=== PATIENT | male | born 1950 | race Caucasian/White ===

== ENCOUNTER 2019-07-16 17:09 | Observation (INO) | payer MEDICARE, SELFPAY ==
[2019-07-16 17:10] VITALS: BP 155/83; PULSE 72; RESP 14; TEMP 36.9; O2SAT 93; BMI 32.0
--- NOTE | 2019-07-16 17:13 | ECG_ITS ---
Measurements Intervals [place] Rate: 70 P: 34 [place]: 176 QRS: 15 QRSD: 115 T: 2 QT: 383 QTc: 415 SINUS RHYTHM INCOMPLETE RIGHT BUNDLE BRANCH BLOCK [90+ ms QRS DURATION, TERMINAL R IN V1/V2, 40+ ms S IN I/aVL/V4/V5/V6] NONSPECIFIC T-WAVE ABNORMALITY INTERPRETATION BASED ON A DEFAULT AGE OF 40 YEARS No previous ECG available for comparison Electronically Signed On 07-17-2019 17:19:47 TREASURY DIRECTOR by Jerson Watters M.D. [id number]
--- NOTE | 2019-07-16 17:14 | ED_ITS ---
Entered by Yohana Zaldivar, acting as scribe for Modesto Sparks DO HPI - Chest Pain General: Chief Complaint: Chest Pain Stated Complaint: CHEST PAIN Time Seen by Provider: 07/16/19 17:10 Source: patient Mode of arrival: EMS Limitations: no limitations History of Present Illness: HPI narrative: 69 yo Male presents to ED with complaint of chest pain. Pt states his pains started around 1500 today. MD complaint: chest pain Timing of current episode: episodic and still present Onset: during exertion Pain location: left chest Pain scale (0-10): 2 Quality: aching and other (pressure) Relieving factors: nitroglycerin Exacerbating factors: nothing Associated symptoms: Reports diaphoresis and dyspnea; Deny abdominal pain, fever(s), nausea, palpitations or vomiting Treatment prior to arrival: aspirin and nitroglycerin Review of Systems General: Reports: 10 or more systems reviewed and unremarkable except in HPI and below Const: Reports: diaphoresis; Denies: fever or chills Eyes: Denies: change in vision, blurry vision or blind spots ENMT: Denies: throat pain, enlarged tonsils, painful swallowing or hoarseness Card: Reports: chest pain; Denies: palpitations, irregular heart rhythm, edema or swelling of feet/ankles Resp: Reports: shortness of breath; Denies: productive cough or non-productive cough GI: Denies: abdominal pain, nausea or vomiting : Denies: flank pain, difficulty urinating, painful urination, urinary frequency or urinary urgency Musc: Denies: neck pain, back pain, extremity pain or extremity swelling Skin/Breast: Denies: rash, itching or redness Neuro: Denies: headache, numbness in extremities or weakness in extremities Endo: Denies: excessive urination, excessive thirst or tired all the time Cornelio/Lymph: Denies: easy bruising or easy bleeding PFSH ED PFSH: Statuses (acute, chronic, etc) shown below reflect problem list status as previously entered and may not be historically accurate Social History (Updated 07/16/19 @ 17:25 by Yohana Zaldivar) Smoking and tobacco status: never smoked Alcohol intake: never Physical Exam Const: COMMON NORMALS: no apparent distress, average body habitus, oriented x3, no limitations, healthy appearing, alert and well nourished HENMT: COMMON NORMALS: normocephalic, head/scalp atraumatic, hearing grossly normal bilaterally, external ears normal, EAC's normal, TM's normal bilaterally, external nose normal, nasal mucous membranes and turbinates normal, moist oral m ucous membranes, oropharynx normal, dentition normal and gingiva normal HEAD & SCALP: normocephalic and atraumatic NOSE: external nose normal and nasal mucous membranes and turbinates normal EXTERNAL EAR: Yes external ears normal EXTERNAL AUDITORY CANAL: EAC's normal TYMPANIC MEMBRANE: TM's normal bilaterally Eye: COMMON NORMALS: PERRL, EOMs intact bilaterally, conjunctivae normal, no scleral icterus, no papilledema, normal visual ruano by confrontation and fundi normal bilaterally CONJUNCTIVA: Yes conjunctivae normal PUPIL: Yes PERRL DIRECT OPHTHALMOSCOPY: Yes no papilledema and Yes fundi normal bilaterally Neck/C-Spine: COMMON NORMALS: full ROM, no lymphadenopathy, supple, no meningeal signs, no JVD, thyroid normal and no carotid bruits THYROID: thyroid normal Chest: COMMONS NORMALS: inspection of chest normal and palpation of chest normal Resp: COMMON NORMALS: normal respiratory effort, no retractions, no use of accessory muscles, clear to auscultation bilaterally and percussion normal A USCULTATION: clear to auscultation bilaterally PERCUSSION: percussion normal Cardio: COMMON NORMALS: no JVD, regular rate, regular rhythm, S1 normal heart sound, S2 normal heart sound, no gallops, no clicks, no murmurs, no rub and peripheral pulses 2+ throughout RATE: regular rate RHYTHM: regular rhythm HEART SOUNDS: S1 normal and S2 normal PERIPHERAL PULSES: pulses 2+ throughout GI: COMMON NORMALS: normal to inspection, nondistended, normoactive bowel sounds, soft to palpation, non-tender, no hepatosplenomegaly, no masses and no bruits PALPATION: Yes soft and Yes no hepatosplenomegaly : COMMON NORMALS: Yes no CVA tenderness BLADDER/KIDNEY EXAM: Yes no CVA tenderness Back/Pelvis: COMMON NORMALS: no CVA tenderness, thoracic and lumbar spine normal to inspection, no thoracic nor lumbar tenderness, thoraco-lumbar ROM normal and straight leg raise negative bilaterally Extremity: COMMON NORMALS: normal to inspection, full ROM, normal capillary refill, no joint enlargement, no clubbing, cyanosis or edema, no calf tenderness and no pedal edema Neuro: COMMON NORMALS: oriented x3 SENSORIUM/ORIENTATION: Yes alert MENINGEAL SIGNS: Yes no meningeal signs Skin: COMMON NORMALS: no rashes or lesions noted, no wounds, skin turgor normal, no jaundice, no petechiae and no mottling GENERAL SKIN EXAM: no rashes or lesions noted and turgor normal Course Vital Signs: Vital signs: Vital Signs Temperature 98.5 F 07/16/19 17:10 Pulse Rate 68 07/16/19 19:15 Respiratory Rate 16 07/16/19 19:15 Blood Pressure 123/86 07/16/19 19:15 Pulse Oximetry 96 07/16/19 19:15 MDM - Chest Pain Lab Data: Labs: Lab Results 07/16/19 07/16/19 07/16/19 Range/Units 17:18 17:18 17:18 WBC 9.6 (4.0-10.0) 10^3/ uL RBC 5.22 (4.1-5.3) 10^6/u L Hgb 15.1 (11.7-16.6) g/dL Hct 43.7 (42.0-52.0) % MCV 83.7 (80-94) fL MCH 28.9 (28.0-34.0) pg MCHC 34.6 (30.0-36.0) g/dL RDW 13.5 (12.1-15.1) % Plt Count 238 (130-400) 10^3/c mm MPV 12.0 H (7.4-10.4) fL Neut % (Auto) 71.3 % Lymph % (Auto) 19.2 % [place] % (Auto) 6.3 % Eos % (Auto) 2.3 % Baso % (Auto) 0.6 % Neut # (Auto) 6.8 (1.8-7.7) 10^3/u L Lymph # (Auto) 1.8 (0.8-4.8) 10^3/u L [place] # (Auto) 0.6 (0.2-0.9) 10^3/u L Eos # (Auto) 0.2 (0.0-0.8) 10^3/u L Baso # (Auto) 0.1 (0.0-0.1) 10^3/u L Nucleated RBC % (a uto) 0 % Nucleated RBCs # 0.0 /100WBC Sodium 138 (136-145) mmol/L Potassium 3.3 L (3.5-5.1) mmol/L Chloride 97 L (98-107) mmol/L Carbon Dioxide 26 (22-29) mmol/L Anion Gap 18.3 (5-19) BUN 19 (8-23) mg/dL Creatinine 1.1 (0.7-1.2) mg/dL GFR Calculation 66.6 L (90-130) mL/min Glucose 103 (74-106) mg/dL Calcium 10.9 H (8.8-10.2) mg/Dl Total Bilirubin 0.8 (0.15-1.2) mg/dL AST 26 (0-40) U/L ALT 31 (0-41) U/L Alkaline Phosphata se 47 (40-130) IU/L Troponin T Baselin e 17 H (0-15) ng/mL Troponin T 120 Min tr (0-15) ng/mL Delta Troponin T (0-10) ABS# NT-Pro-B Natriuret Pep 15 (0-125) pg/mL Total Protein 7.4 (6.6-8.7) g/dL Albumin 5.0 (3.5-5.2) g/dL Globulin 2.4 (1.3-4.6) g/dL 07/16/19 Range/Units 19:27 WBC (4.0-10.0) 10^3/ uL RBC (4.1-5.3) 10^6/u L Hgb (11.7-16.6) g/dL Hct (42.0-52.0) % MCV (80-94) fL MCH (28.0-34.0) pg MCHC (30.0-36.0) g/dL RDW (12.1-15.1) % Plt Count (130-400) 10^3/c mm MPV (7.4-10.4) fL Neut % (Auto) % Lymph % (Auto) % [place] % (Auto) % Eos % (Auto) % Baso % (Auto) % Neut # (Auto) (1.8-7.7) 10^3/u L Lymph # (Auto) (0.8-4.8) 10^3/u L [place] # (Auto) (0.2-0.9) 10^3/u L Eos # (Auto) (0.0-0.8) 10^3/u L Baso # (Auto) (0.0-0.1) 10^3/u L Nucleated RBC % (a uto) % Nucleated RBCs # /100WBC Sodium (136-145) mmol/L Potassium (3.5-5.1) mmol/L Chloride (98-107) mmol/L Carbon Dioxide (22-29) mmol/L Anion Gap (5-19) BUN (8-23) mg/dL Creatinine (0.7-1.2) mg/dL GFR Calculation (90-130) mL/min Glucose (74-106) mg/dL Calcium (8.8-10.2) mg/Dl Total Bilirubin (0.15-1.2) mg/dL AST (0-40) U/L ALT (0-41) U/L Alkaline Phosphata se (40-130) IU/L Troponin T Baselin e (0-15) ng/mL Troponin T 120 Min tr 13.88 (0-15) ng/mL Delta Troponin T -3.12 L (0-10) ABS# NT-Pro-B Natriuret Pep (0-125) pg/mL Total Protein (6.6-8.7) g/dL Albumin (3.5-5.2) g/dL Globulin (1.3-4.6) g/dL Imaging Data^: CXR: Radiologist's impression: [place] [address] XRay Report Signed Patient: Toan Bejarano #: [id number] : 1950cct#:[id number] Age/Sex: 69 / MADM Date: 07/16/19 Loc: ERRoom/Bed: Attending Dr: Ordering Provider/Ordering MD: Modesto Sparks DO Date of Service: 07/16/19 Procedure(s): XR chest 1V portable [id number] Accession Number(s): [id number] Report Number: [id number] PROCEDURE INFORMATION: Exam: XR Chest, 1 View Exam date and time: 07/16/2019 5:14 PM Age: 69 years old Clinical indication: Chest pain TECHNIQUE: Imaging protocol: XR of the chest Views: 1 view. COMPARISON: No relevant prior studies available. FINDINGS: Lungs: Unremarkable. No consolidation. Pleural space: Unremarkable. No pleural effusion. No pneumothorax. Heart/Mediastinum: Unremarkable. No cardiomegaly. Bones/joints: Unremarkable. XR/XR chest 1V portable [id number] IMPRESSION: No acute findings. Dictated By:Landon Pierson Signed By:Fanny Pierson Date/Time:07/16/191741 DD/ 40 Discharge Plan Discharge Patient Disposition: Admitted As Inpatient Clinical Impression: Chest pain Qualifiers: Chest pain type: chest pain due to myocardial ischemia Ischemic chest pain t ype: unstable angina pectoris Qualified Code(s): I20.0 - Unstable angina Condition: Fair Referrals: Soraya Calhoun DPM [Primary Care Provider] - Coding Level of Care Code ED Computer Help Desk Specialist for Chg Fwd Exam Problem Focused The documentation recorded by the Zen isaacs Carmen, accurately reflects the service I personally performed and the decisions made by Clare russell Donald P, Jul 16, 2019 17:09
[2019-07-16 17:31] LABS: Basophils # 0.1 10^3/uL (0.0-0.1); Basophils % 0.6 %; Eosinophils # 0.2 10^3/uL (0.0-0.8); Eosinophils % 2.3 %; Hematocrit 43.7 % (42.0-52.0); Hemoglobin 15.1 g/dL (11.7-16.6); Lymphocytes # 1.8 10^3/uL (0.8-4.8); Lymphocytes % 19.2 %; Mean Corpuscular HGB Conc 34.6 g/dL (30.0-36.0); Mean Corpuscular Hemoglobin 28.9 pg (28.0-34.0); Mean Corpuscular Volume 83.7 fL (80-94); Monocytes # 0.6 10^3/uL (0.2-0.9); Monocytes % 6.3 %; Neutrophils # 6.8 10^3/uL (1.8-7.7); Neutrophils % 71.3 %; Nucleated Red Blood Cells % 0 %; Platelet Count 238 10^3/cmm (130-400); Red Blood Count 5.22 10^6/uL (4.1-5.3); Red Cell Distribution Width 13.5 % (12.1-15.1); White Blood Count 9.6 10^3/uL (4.0-10.0)
[2019-07-16 18:06] LABS: Troponin(5th) Baseline 17 ng/mL (0-15)
[2019-07-16 18:14] LABS: Alanine Aminotransferase 31 U/L (0-41); Alkaline Phosphatase 47 IU/L (40-130); Anion Gap 18.3 (5-19); Aspartate Amino Transferase 26 U/L (0-40); Blood Urea Nitrogen 19 mg/dL (8-23); Calcium 10.9 mg/Dl (8.8-10.2); Carbon Dioxide 26 mmol/L (22-29); Chloride 97 mmol/L (98-107); Globulin 2.4 g/dL (1.3-4.6); Glomerular Filtration Rate 66.6 mL/min (90-130); Glucose 103 mg/dL (74-106); NT Pro B Type Natriuretic Pept 15 pg/mL (0-125); Potassium 3.3 mmol/L (3.5-5.1); Sodium 138 mmol/L (136-145); Total Bilirubin 0.8 mg/dL (0.15-1.2); Total Protein 7.4 g/dL (6.6-8.7)
--- NOTE | 2019-07-16 19:04 | PC.NURSE ---
REPORT RECEIVED FROM ANNE GUADALUPE AND CARE TRANSFERRED TO ANNE MONSON
--- NOTE | 2019-07-16 19:13 | ECG_ITS ---
Measurements Intervals [place] Rate: 65 P: 19 [place]: 176 QRS: 7 QRSD: 114 T: -5 QT: 389 QTc: 406 SINUS RHYTHM POSSIBLE RIGHT VENTRICULAR CONDUCTION DELAY [RSR (QR) IN V1/V2] POSSIBLE LEFT VENTRICULAR HYPERTROPHY [VOLTAGE CRITERIA PLUS LAE OR QRS WIDENING] NONSPECIFIC T-WAVE ABNORMALITY No previous ECG available for comparison Electronically Signed On 07-17-2019 17:26:47 FITNESS COACH by Jerson Watters M.D. [id number]
[2019-07-16 19:15] VITALS: BP 123/86; PULSE 68; RESP 16; O2SAT 96
[2019-07-16 19:48] LABS: Troponin 5 2HR 13.88 ng/mL (0-15)
[2019-07-16 19:49] LABS: Troponin 5 2HR Delta -3.12 ABS# (0-10)
[2019-07-16 20:43] VITALS: BP 150/79; PULSE 62; RESP 14; O2SAT 95
[2019-07-16 20:56] VITALS: BP 150/79; PULSE 59; RESP 16; O2SAT 98
[2019-07-16 21:17] VITALS: BP 151/78; PULSE 59; RESP 18; TEMP 36.5; O2SAT 96
--- NOTE | 2019-07-16 22:50 | P.HP_ITS ---
Providers/Chief Complaint Admitting Physician: Jackie Haynes MD Primary Care Provider: DAMIAN Lozano Chief Complaint: CHEST PAIN History of Present Illness Toan Bejarano is a 69 year old male with PMHx of HTN, Hyperlipidemia, NIDDM type II, Obesity; presents from home via EMS for evaluation of chest pain that started earlier this evening while he was outside moving some 2 x 4 planks. He describes it as a left-sided, pressure-like, non-radiating seem to last for several minutes at a time. He took 2 baby aspirins and immediately called EMS. On their arrival they gave him an additional 3 aspirins and 1 nitroglycerin which resolved his pain completely. He is currently chest pain-free during my evaluation on the floor. He has had chest pain like this in the past approximately 6 years ago following which he had a treadmill stress test that was negative. He has not had any chest pain since. He denies having had any shortness of breath, palpitations, lightheadedness but does remember being mildly diaphoretic. Prior to the onset of his pain he was seen his usual state of health. He does not think that he overexerted earlier in the day. Work-up in the ER indicates a normal CBC, mild hypokalemia with a potassium of 3.3 which I will replace orally, normal renal function. BNP is normal and 2-hour generation 5 troponins shows a slight drop of 2.44. Vital signs are stable. I discussed stress testing given the onset of his symptoms with exertion which patient is agreeable to and will be scheduled for the a.m. Review of Systems Const: Reports: diaphoresis (Mild); Denies: fever, chills, change in appetite, fatigue or malaise Eyes: Denies: change in vision ENMT: Denies: painful swallowing or dry mouth Card: Reports: chest pain; Denies: palpitations, edema, swelling of feet/ankles, lightheadedness, syncope or pre-syncope Resp: Denies: shortness of breath or productive cough GI: Denies: abdominal pain, nausea, vomiting, vomiting blood or blood in stool : Denies: painful urination or urinary frequency Musc: Denies: back pain Skin/Breast: Denies: rash Neuro: Reports: weakness in extremities; Denies: numbness in extremities Psych: Denies: anxiety Medications/Allergies Home Medications Medication Instructions Recorded Confirmed Last Taken Type allopurinol 300 mg PO DAILY 07/16/19 07/16/19 07/16/19 History aspirin [Aspir-81] 162 mg PO DAILY 07/16/19 07/16/19 07/16/19 History atorvastatin 40 mg PO DAILY 07/16/19 07/16/19 07/15/19 History benazepril 40 mg PO DAILY 07/16/19 07/16/19 07/16/19 History bimatoprost [Lumigan] 1 drp OPHTHALMIC (EYE) QPM 07/16/19 07/16/19 07/15/19 History fenofibrate 160 mg PO DAILY 07/16/19 07/16/19 07/16/19 History hydrochlorothiazide 25 mg PO DAILY 07/16/19 07/16/19 07/16/19 History metformin 1,000 mg PO BID 07/16/19 07/16/19 07/16/19 History Allergies Allergy/AdvReac Type Severity Reaction Status Date / Time amoxicillin Allergy Unknown Unknown Verified 07/16/19 20:42 PFSH Acute PFSH: Statuses (acute, chronic, etc) shown below reflect problem list status as previously entered and may not be historically accurate Medical History (Updated 07/17/19 @ 02:04 by Jackie Haynes MD) Hyperlipidemia (Acute) Hypertension (Acute) Non-insulin dependent type 2 diabetes mellitus (Acute) Surgical History (Updated 07/17/19 @ 01:59 by Jackie Haynes MD) History of appendectomy (Acute) Family History (Updated 07/17/19 @ 02:00 by Jackie Haynes MD) Grandmother Hypertension Diabetes Denies family history of CAD (coronary artery disease) Social History (Updated 07/17/19 @ 02:00 by Jackie Haynes MD) Smoking and tobacco status: never smoked Alcohol intake: never Substance/Drug Use: never Vitals/I&O/Wt Last Vital Signs Temp 97.7 F 07/16/19 21:17 Pulse 59 L 07/16/19 21:17 Resp 18 07/16/19 21:17 BP 151/78 07/16/19 21:17 Pulse Ox 96 07/16/19 21:17 Weight last 48 hrs Weight 98.43 kg Physical Exam Const: COMMON NORMALS: no apparent distress and oriented x3 GENERAL APPEARANCE: cooperative and comfortable ORIENTATION/CONSCIOUSNESS: Yes awake HENMT: COMMON NORMALS: normocephalic, head/scalp atraumatic, hearing grossly normal bilaterally and moist oral mucous membranes HEAD & SCALP: normocephalic and atraumatic Eye: COMMON NORMALS: PERRL, EOMs intact bilaterally and conjunctivae normal CONJUNCTIVA: Yes conjunctivae normal PUPIL: Yes PERRL Neck/C-Spine: COMMON NORMALS: full ROM GENERAL: Yes normal visual inspection and Yes trachea midline Resp: COMMON NORMALS: normal respiratory effort, no retractions, no use of accessory muscles and clear to auscultation bilaterally EFFORT & INSPECTION: Yes able to speak in complete sentences, Yes symmetric chest movement and No tachypneic AUSCULTATION: clear to auscultation bilaterally Cardio: COMMON NORMALS: regular rate, regular rhythm, S1 normal heart sound, S2 normal heart sound and no murmurs RATE: regular rate RHYTHM: regular rhythm HEART SOUNDS: S1 normal and S2 normal GI: COMMON NORMALS: normal to inspection, nondistended, normoactive bowel sounds, soft to palpation and non-tender PALPATION: Yes soft Extremity: COMMON NORMALS: normal to inspection, full ROM and no clubbing, cyanosis or edema; negative for no pedal edema Neuro: COMMON NORMALS: oriented x3, moves all extremities, no focal motor deficits, no sensory deficits noted and gait normal Psych: COMMON NORMALS: mental status grossly normal, thought process normal, cooperative, affect normal and speech normal SPEECH: Yes normal speech THOUGHT PROCESS: normal thought process Skin: COMMON NORMALS: no rashes or lesions noted, no jaundice, no petechiae and no mottling GENERAL SKIN EXAM: no rashes or lesions noted Data : 07/16/19 17:18 07/16/19 17:18 A&P Assessment and plan (1) Chest pain: -chest pain that was brought on by exertion, need to rule out ACS given underlying risk factors including [id number] type 2 diabetes, hypertension and hyperlipidemia -Telemetry monitoring -Serial troponins, EKGs -Stress testing in a.m. -Check A1c, TSH, lipid panel in a.m. -JESSY -NPO after midnight Status: Acute Qualifiers: Chest pain type: chest pain due to myocardial ischemia Ischemic chest pain type: unstable angina pectoris Qualified Code(s): I20.0 - Unstable angina Code(s): R07.9 - Chest pain, unspecified (2) Non-insulin dependent type 2 diabetes mellitus: -check A1c in AM Status: Acute Code(s): E11.9 - Type 2 diabetes mellitus without complications (3) Hypertension: -resume oral antihypertensives as appropriate Status: Acute Qualifiers: Hypertension type: essential hypertension Qualified Code(s): I10 - Essential (primary) hypertension Code(s): I10 - Essential (primary) hypertension (4) Hyperlipidemia: -resume statin -lipid panel in AM Status: Acute Qualifiers: Hyperlipidemia type: unspecified Qualified Code(s): E78.5 - Hyperlipidemia, unspecified Code(s): E78.5 - Hyperlipidemia, unspecified Additional A&P Information -Obesity: BMI-32 kg/m2 -Gout -resume home meds as appropriate -hold metformin -low risk for DVT so no ppx needed -Dispo: home -Code status: FULL code Attestations Medical Necessity Statement*: Toan Bejarano's hospital stay will be less than 2 midnights for workup of chest pain r/o ACS including stress testing in AM. Time Spent in Patient Care: Greater than 35 minutes (>than 50% of time spent in counselling and/or direct pt care on unit) . Coding Level of Care Code Acute Safety Instruction Police Officer for Antonio Dickinson Diagnoses Chest pain I20.0 Chest pain type: chest pain due to myocardial ischemia Ischemic chest pain type: unstable angina pectoris Non-insulin dependent type 2 diabetes mellitus E11.9 Hypertension I10 Hypertension type: essential hypertension Hyperlipidemia E78.5 Hyperlipidemia type: unspecified
--- NOTE | 2019-07-16 23:13 | ECG_ITS ---
Measurements Intervals [place] Rate: 59 P: 49 [place]: 182 QRS: 30 QRSD: 117 T: 5 QT: 417 QTc: 414 SINUS BRADYCARDIA MODERATE INTRAVENTRICULAR CONDUCTION DELAY [110+ ms QRS DURATION] NONSPECIFIC T-WAVE ABNORMALITY No previous ECG available for comparison Electronically Signed On 07-17-2019 17:27:25 MICROFILM CLERK by Jerson Watters M.D. [email or web address]
[2019-07-16 23:44] VITALS: BP 124/73; PULSE 57; RESP 18; TEMP 37; O2SAT 95
[2019-07-16 23:49] LABS: Troponin 5 6HR 14.56 ng/L (0-15)
[2019-07-16 23:50] LABS: Troponin 5 6HR Delta -2.44 ng/L (0-12)
[2019-07-17] VITALS (7 sets, daily range): BP systolic 151–185; BP diastolic 77–89; PULSE 56–87; RESP 15–18; TEMP 36.6–37; O2SAT 96
--- NOTE | 2019-07-17 06:00 | ECG_ITS ---
NAME OF STUDY: LEXISCAN SESTAMIBI STRESS TEST INDICATION: Typical Chest Pain r/o ACS PROCEDURE: At the baseline, the EKG revealed normal sinus rhythm with normal ST-T's. The baseline blood pressure was 161/80 mm Hg with a heart rate of 66 beats/min. Lexiscan was infused over a period of 20 seconds. A total of 0.4 milligrams of Lexiscan was infused. The stress phase was continued for a total of 5 minutes. Heart rate at the end of the stress phase was 88 with a blood pressure 179/88. The EKG at the peak infusion revealed some nonspecific ST-T changes. Sestamibi was injected 20 seconds after the Lexiscan infusion. Blood pressure at the end of the recovery phase was 177/70 with a heart rate of 82 per minute. CONCLUSION: 1. Nonspecific EKG changes with LexiScan infusion 2. No LexiScan induced chest pain or cardiac arrhythmia 3. Normal blood pressure and heart rate response 4. Sestamibi/sestamibi perfusion scan pending; see separate report. Electronically Signed On 07-18-2019 22:13:44 WANT AD SUPERVISOR by Maria Elena Hernandez M.D. [id number]
[2019-07-17 06:36] LABS: Estmated Average Glucose 134; Hemoglobin A1C 6.3 % (4.0-6.0)
[2019-07-17 06:39] LABS: Chol HDL Ratio 4.86 mg/dL (1.0-5.00); Cholesterol 136 mg/dL (0-200); HDL Cholesterol 28 mg/dL (60-100); LDL Cholesterol Calculated 61 mg/dL (50-129); LDL HDL Ratio 2.18 RATIO (0.00-3.22); Thyroid Stimulating Hormone 2.54 uIU/mL (0.27-4.20); Triglycerides 237 mg/dL (0-150)
--- NOTE | 2019-07-17 06:50 | SUR.PREOP ---
PRE PROCEDURE NO PAIN REPORTED DURING INTAKE ASSESSMENT.
--- NOTE | 2019-07-17 08:52 | SUR.PREOP ---
Patient reports no pain or discomfort prior to the start of the procedure.
[2019-07-17] MEDS: regadenoson 0.4 Mg/5 ml Syringe IVP (09:01)
[2019-07-17] MEDS: hydroCHLOROthiazide 25 mg Tablet PO (10:44)
[2019-07-17] MEDS: aspirin 81 mg Chew Tablet 162 MG PO (10:44)
[2019-07-17] MEDS: allopurinol 300 mg Tablet PO (10:45)
--- NOTE | 2019-07-17 15:08 | PC.NURSE ---
Talking with roommate
--- NOTE | 2019-07-17 18:34 | P.DS_ITS ---
Discharge Providers Date of Admission: 07/16/19 20:20 Date of Discharge: 07/17/19 Attending Provider at Admission: Jackie Haynes MD Attending Provider at Discharge: Zachery Belcher Primary Care Provider: DAMIAN Lozano Diagnoses at Discharge Discharge Diagnosis (1) Chest pain: Status: Acute Qualifiers: Chest pain type: chest pain due to myocardial ischemia Ischemic chest pain type: unstable angina pectoris Qualified Code(s): I20.0 - Unstable angina (2) Non-insulin dependent type 2 diabetes mellitus: Status: Acute (3) Hypertension: Status: Acute Qualifiers: Hypertension type: essential hypertension Qualified Code(s): I10 - Essential (primary) hypertension (4) Hyperlipidemia: Status: Acute Qualifiers: Hyperlipidemia type: unspecified Qualified Code(s): E78.5 - Hyperlipidemia, unspecified Reason for Visit Reason for Visit: Reason For Visit: CHEST PAIN Hospital Course Hospital Course: .Pleasant 69-year-old gentleman with history of HTN, HLD, DM 2 was placed in observation after an episode of chest pain after moving some 2 by fours, which resolved after aspirin and nitroglycerin treatment given to him by paramedics, without any recurrence. He was continued on aspirin, statin, HCTZ for blood pressure. He underwent assessment by nuclear Lexiscan stress test, results of which were discussed with him and his family. Small area of inconsistently reversible defect in the mid inferior wall region could suggest ischemia in distribution of RCA, however, with limited positive predictive value, with normal ejection fraction, no gross wall motion abnormalities. With only very mildly elevated baseline troponin, without rise or significant delta, with nonspecific EKG changes, unremarkable chest x-ray, and without any recurrence of symptoms he wanted to go home. Plan for medical therapy was discussed with him and his . He is started on minimal dose, 12.5 mg of metoprolol for suspected coronary artery disease due to borderline heart rate, continued on aspirin, statin. Please follow-up in office regarding coronary disease risk factors. Follow heart rates and adjust therapy as appropriate. Physical Exam Const: COMMON NORMALS: no apparent distress and oriented x3 OTHER: is at bedside. He is impatient to leave, ready to leave AGAINST MEDICAL ADVICE if needed in case stress test result takes longer. HENMT: COMMON NORMALS: oropharynx normal Neck/C-Spine: COMMON NORMALS: no JVD Resp: COMMON NORMALS: normal respiratory effort and clear to auscultation bilaterally AUSCULTATION: clear to auscultation bilaterally Cardio: COMMON NORMALS: no JVD, regular rhythm, S1 normal heart sound, S2 normal heart sound and no murmurs RHYTHM: regular rhythm HEART SOUNDS: S1 normal and S2 normal GI: COMMON NORMALS: normal to inspection, nondistended, normoactive bowel sounds, soft to palpation and non-tender PALPATION: Yes soft Extremity: COMMON NORMALS: no joint enlargement and no pedal edema Neuro: COMMON NORMALS: oriented x3 and moves all extremities Skin: COMMON NORMALS: no rashes or lesions noted GENERAL SKIN EXAM: no rashes or lesions noted Discharge Data Data Completed and Pending: Completed Studies During Hospitalization Category Date Time Status XR chest 1V carlos ble [id number] Stat Exams 07/16/19 17:12 Completed NM ivette perf SPECT r/s* [id number] Routin e Nuc Med 07/17/19 22:47 Completed Pending at discharge Category Date Time Status Sestamibi Stress Test Request Routi ne Exams 07/17/19 06:00 Ordered Labs from last 24 hours 07/17/19 07/17/19 07/16/19 05:15 05:15 23:20 Estimat Average Gl ucose 134 Hemoglobin A1c 6.3 H Troponin I 6 Hour 14.56 Troponin I Hi Sens Del -2.44 L Troponin T 120 Min [facility] [place] Delta Troponin T Triglycerides 237 H Cholesterol 136 LDL Cholesterol, C alc 61 HDL Cholesterol 28 L LDL/HDL Ratio 2.18 Cholesterol/HDL Ra carlos 4.86 TSH 2.54 07/16/19 19:27 Estimat Average Gl ucose Hemoglobin A1c Troponin I 6 Hour Troponin I Hi Sens Del Troponin T 120 Min [facility] [place] 13.88 Delta Troponin T -3.12 L Triglycerides Cholesterol LDL Cholesterol, C alc HDL Cholesterol LDL/HDL Ratio Cholesterol/HDL Ra carlos TSH Vitals: Last Vital Signs Temp 98.6 F 07/17/19 18:09 Pulse 63 07/17/19 18:09 Resp 16 07/17/19 18:09 BP 155/81 07/17/19 18:09 Pulse Ox 96 07/17/19 18:09 Discharge Plan Discharge Patient Disposition: Home, Self-Care Condition: Fair Prescriptions: New metoprolol tartrate 25 mg tablet 12.5 mg PO BID Qty: 30 RF: 0 nitroglycerin 400 mcg powder in packet 0.4 mg SUBLINGUAL Q5M PRN (Reason: chest pain) Qty: 36 RF: 0 Continued atorvastatin 20 mg tablet 40 mg PO DAILY RF: 0 metformin 1,000 mg tablet 1,000 mg PO BID RF: 0 allopurinol 300 mg tablet 300 mg PO DAILY RF: 0 hydrochlorothiazide 25 mg tablet 25 mg PO DAILY RF: 0 benazepril 40 mg tablet 40 mg PO DAILY RF: 0 fenofibrate 160 mg tablet 160 mg PO DAILY RF: 0 Aspir-81 81 mg Tablet,Delayed Release (Dr/Ec) 162 mg PO DAILY RF: 0 Lumigan 0.01 % Drops 1 drp OPHTHALMIC (EYE) QPM RF: 0 Discharge Orders: Discharge Order (Routine); Ordered 07/17/19 Ordered By: Zachery Belcher Referrals: Soraya Calhoun DPM [Primary Care Provider] - 4-7 days (PLEASE CALL TOMORROW MORNING TO SET UP A FOLLOW UP APPOINTMENT.) Discharge Diet: Cardiac and Diabetic Patient Instructions: Metoprolol (By mouth), Nitroglycerin (By mouth), Chest Pain (DC) Activity Restrictions/Additional Instructions: If you experience severe non-resolving chest pain, not responsive to nitroglycerin, seek medical attention delay. Continue to monitor your blood pressure and blood glucose 3 times daily, record values to bring to your appointment. Discharge Date/Time: 07/17/19 18:21 Discharge Attestations Time Spent in Discharge Care*: greater than 30 min Quality Metrics Clinical Quality Measures During this hospital stay, did patient experience: None Coding Level of Care Code Acute Soda Column Operator for Antonio Dickinson Diagnoses Chest pain I20.0 Chest pain type: chest pain due to myocardial ischemia Ischemic chest pain type: unstable angina pectoris Non-insulin dependent type 2 diabetes mellitus E11.9 Hypertension I10 Hypertension type: essential hypertension Hyperlipidemia E78.5 Hyperlipidemia type: unspecified
--- NOTE | 2019-07-17 22:47 | NMCV_ITS ---
Toan Bejarano Age: 69 Gender: M : 1950 Exam Date: 07/17/2019 08:12 Ordering Phys: Jackie Haynes MD Technologist: MARINA Rodriguez Exam Location: [facility] Indications: Chest Pain STRESS TEST Please see separate stress test report in [facility] for full findings IMAGE PROTOCOL Rest/Stress 1 Lexiscan Day Radiopharmaceutical Dose (mCi) Administration Site Administered by Rest: Tc-99m 10.3 IV MARINA Rodriguez Sestamibi Stress:Tc-99m 32.6 IV Marycruz Tobar, MARINA Sestamibi Rest: 17-Jul-2019 60 Discovery 630 Stress: 17-Jul-2019 60 Discovery 630 0.4mg Lexiscan. Images obtained in supine and prone position. SPECT RESULTS Technical Quality: Good Raw Data Analysis: Normal, Diaphragmatic attenuation Image Corrections: No attenuation or motion correction applied Summed Stress Score: 0 Summed Rest Score: 0 Summed Difference Score: 0 PERFUSION FINDINGS Small area of decreased tracer take in the mid and apical inferior wall region, with some reversibility in the mid inferior region, based on the SPECT imaging. However based on the polar maps, no significant reversibility was noted. FUNCTIONAL RESULTS (calculated via Gated SPECT) Stress Image LV EF (%): 61 Stress EDV (mL):118 TID: 0.93 Stress ESV (mL):46 FUNCTIONAL FINDINGS: Segmental wall motion analysis revealing no gross wall motion normalities IMPRESSIONS 1. Myocardial visually revealing a small area of inconsistent reversible defect in the mid inferior wall region, may suggest ischemia in the distribution of the right coronary artery. However the positive predictive value this finding is limited. 2. Normal ejection fraction 61%. 3. LV wall motion analysis revealing no gross wall motion normalities. 4. LV volume, upper limit of normal No similar previous studies are available for comparison Dr Maria Elena Hernandez MD [facility] (Electronically Signed) Final Date: 17 July 2019 17:11 S
== END 2019-07-17 18:21 | disposition home or self-care (01) ==
LOC: ER 20:19 → MEDSURG 20:37
PROVIDERS: Admitting Provider Family Medicine; Emergency Provider Family Medicine; PCP Nurse Practitioner; Visit Provider Internal Medicine
DX: I20.0 Unstable angina (principal); E11.9 Type 2 diabetes mellitus without complications; I10 Essential (primary) hypertension; E78.5 Hyperlipidemia, unspecified; E66.9 Obesity, unspecified; Z68.32 Body mass index [BMI] 32.0-32.9, adult; M10.9 Gout, unspecified; Z79.84 Long term (current) use of oral hypoglycemic drugs; Z79.82 Long term (current) use of aspirin; Z82.49 Family history of ischemic heart disease and other diseases of the circulatory system; Z83.3 Family history of diabetes mellitus
CPT/HCPCS: 12345; 36415; 71045; 78452; 80053; 80061; 83036; 83880; 84443; 84484; 85025; 93005; 93017; 96374; 96375; 99282; 99285; A9500; G0378; J2785

== ENCOUNTER 2019-11-06 01:59 | Emergency (ER) | payer MEDICARE, SELFPAY ==
[2019-11-06 02:27] VITALS: BP 155/75; PULSE 63; RESP 16; TEMP 37.5; O2SAT 96; BMI 31.0
--- NOTE | 2019-11-06 02:29 | CTR_ITS ---
PROCEDURE INFORMATION: Exam: CT Abdomen And Pelvis With Contrast Exam date and time: 11/06/2019 2:47 AM Age: 69 years old Clinical indication: Abdominal pain; Periumbilical; Prior surgery; Surgery date: 6+ months; Surgery type: Appy; Patient HX: PT has known hernias, having pain in those areas; Additional info: Abd pain TECHNIQUE: Imaging protocol: Computed tomography of the abdomen and pelvis with intravenous contrast. Radiation optimization: All CT scans at this facility use at least one of these dose optimization techniques: automated exposure control; mA and/or kV adjustment per patient size (includes targeted exams where dose is matched to clinical indication); or iterative reconstruction. Contrast material: OMNI 300; Contrast volume: 95 ml; Contrast route: IV; COMPARISON: No relevant prior studies available. RADIATION DOSE METRICS: Total DLP: 1217.36 mGy-cm FINDINGS: Lungs: Mild atelectasis at bilateral lung bases. Liver: There are a few hypodense lesions in the left hepatic lobe. Sample lesion measures 2 cm x 1.7 cm and demonstrates peripheral nodular enhancement on series 2, image 14. These are likely hemangiomas. Gallbladder and bile ducts: There is a 1.6 cm gallstone in the neck of the gallbladder. Pancreas: Unremarkable. Spleen: Unremarkable. Adrenals: There is a 2.6 cm x 2.2 cm nodule in the right adrenal gland on series 2, image 25 with density 48 Hounsfield units. Etiology is indeterminate. Consider adrenal washout protocol CT for further evaluation. The left adrenal gland is unremarkable. Kidneys and ureters: Unremarkable. No hydronephrosis. Stomach and bowel: No bowel obstruction identified. Diverticulosis of the colon without evidence of diverticulitis. Appendix: The appendix is not identified as a separate structure. No findings to suggest appendicitis. Intraperitoneal space: No free intraperitoneal air or fluid identified. Vasculature: The abdominal aorta is nonaneurysmal. Lymph nodes: Unremarkable. Bladder: The bladder is unremarkable. Reproductive: Unremarkable as visualized. Bones/joints: Flowing ossification anterior to the lower thoracic spine, consistent with diffuse idiopathic skeletal hyperostosis. Bilateral L5 interarticularis defects are noted. Grade 1 anterolisthesis of L5 on S1. Moderate degenerative disc disease at L5-S1. There is a 1.2 cm x 0.9 cm sclerotic lesion in the right ilium on series 2, image 60. There is a 1.6 cm x 1.1 cm sclerotic lesion in the left ilium on series 2, image 63. There is a 0.9 cm x 0.7 cm sclerotic lesion in the right acetabulum on series 2, image 77. These likely represent bone islands. Metastatic disease is possible. Enchondromas are conceivable but not likely. Soft tissues: Unremarkable. Other findings: If additional or more detailed information is needed, an addendum can be generated on request. CT/CT abdomen pelvis w con* [id number] IMPRESSION: 1. There is a 1.6 cm gallstone in the neck of the gallbladder. 2. Indeterminate right adrenal nodule. Consider adrenal washout protocol CT for further evaluation. 3. There are a few small sclerotic foci in the pelvic bones. These likely represent bone islands. Metastatic disease is possible. Enchondromas are conceivable but not likely. Radiation Dose CTDIVOL = (mGy): DLP = 1217.36 (mGy-cm)
[2019-11-06 02:34] VITALS: BP 134/81; PULSE 84; RESP 16; O2SAT 94
[2019-11-06] MEDS: sodium chloride 0.9% 1,000 ML 999 ML IV (03:16)
[2019-11-06] MEDS: morphine 4 mg/mL SDV 1 mL IVP (03:17)
[2019-11-06] MEDS: ondansetron 2 mg/ML SDV 2 mL 4 MG IVP (03:17)
[2019-11-06 03:25] LABS: Basophils # 0.1 10^3/uL (0.0-0.1); Basophils % 0.5 %; Eosinophils # 0.3 10^3/uL (0.0-0.8); Lymphocytes # 1.6 10^3/uL (0.8-4.8); Lymphocytes % 14.9 %; Mean Corpuscular HGB Conc 34.1 g/dL (30.0-36.0); Mean Corpuscular Hemoglobin 30.1 pg (28.0-34.0); Mean Corpuscular Volume 88.2 fL (80-94); Neutrophils # 7.8 10^3/uL (1.8-7.7); Neutrophils % 72.1 %; Nucleated Red Blood Cells % 0 %; Platelet Count 215 10^3/cmm (130-400); Red Blood Count 4.65 10^6/uL (4.1-5.3); Red Cell Distribution Width 14.1 % (12.1-15.1); White Blood Count 10.8 10^3/uL (4.0-10.0)
[2019-11-06 03:34] VITALS: BP 127/66; PULSE 76; RESP 16; O2SAT 95
[2019-11-06 03:35] LABS: Lactate (Lactic Acid level) 1.8 mmol/L (0.5-2.2)
[2019-11-06 03:36] LABS: Alanine Aminotransferase 22 U/L (0-41); Albumin Level 4.2 g/dL (3.5-5.2); Alkaline Phosphatase 37 IU/L (40-130); Anion Gap 16.5 (5-19); Aspartate Amino Transferase 18 U/L (0-40); Blood Urea Nitrogen 15 mg/dL (8-23); Calcium 10.2 mg/dL (8.5-10.5); Carbon Dioxide 24 mmol/L (22-29); Chloride 103 mmol/L (98-107); Creatinine Clr Calc Pharmacy 80.5216; Globulin 2.5 g/dL (1.3-4.6); Glomerular Filtration Rate 74.3 mL/min (90-130); Glucose 144 mg/dL (65-115); Lipase 227 U/L (13-60); Osmolality Calculated 289 mOsm/kg (285-295); Potassium 3.5 mmol/L (3.5-5.1); Sodium 140 mmol/L (136-145); Total Bilirubin 0.7 mg/dL (0.15-1.2); Total Protein 6.7 g/dL (6.6-8.7)
[2019-11-06] MEDS: iohexol 300 mg/mL 100 mL Btl IV (03:44)
--- NOTE | 2019-11-06 03:54 | W.ED.ABDPA2 ---
HPI - Abdominal Pain General: Chief Complaint: Abdominal Pain Stated Complaint: abd pain Time Seen by Provider: 11/06/19 02:26 History of Present Illness: HPI narrative: 69-year-old male patient with a history of ventral hernia. He has been seen for this, and had a surgery scheduled for later in the week. He was told that if his pain got to be more severe, to come to the emergency department. His pain is been increasingly severe for the past couple of days. He denies fever or vomiting. He states he has been nauseated. No constipation or diarrhea. No blood in the stool. He localizes pain around the hernia. MD elicited complaint: abdominal pain Pertinent past history: other (Ventral hernia) Onset (ago): day(s) Pain Consistency: constant Location: Periumbilical Severity: moderate Quality: cramping and aching Radiation: none Exacerbating factors: nothing Relieving factors: nothing Associated Symptoms: Denies diarrhea, fever(s), hematochezia, hematuria, hematemesis and vomiting Review of Systems Const: Denies: fever Eyes: Denies: change in vision ENMT: Denies: painful swallowing or facial/sinus pain Card: Denies: chest pain, palpitations or irregular heart rhythm Resp: Denies: shortness of breath, productive cough, non-productive cough or wheezing GI: Denies: vomiting, vomiting blood, diarrhea or blood in stool : Denies: difficulty urinating, urinary urgency or blood in urine Musc: Denies: back pain, redness or joint warmth Skin/Breast: Denies: rash, itching or redness Neuro: Denies: headache, dizziness or vertigo Psych: Denies: anxiety PFSH ED PFSH: Social History Smoking and tobacco status: never smoked Alcohol intake: never History of recent travel: No Physical Exam Const: GENERAL APPEARANCE: well developed ORIENTATION/CONSCIOUSNESS: Yes oriented to person, Yes oriented to place and Yes oriented to time HENMT: COMMON NORMALS: normocephalic HEAD & SCALP: normocephalic FACE & SINUS: normal facial exam NOSE: no nasal discharge Eye: COMMON NORMALS: PERRL, EOMs intact bilaterally and conjunctivae normal EYELID: eyelids normal CONJUNCTIVA: Yes conjunctivae normal PUPIL: Yes PERRL Neck/C-Spine: GENERAL: No tracheal deviation Chest: COMMONS NORMALS: inspection of chest normal CHEST: No tenderness Resp: COMMON NORMALS: clear to auscultation bilaterally EFFORT & INSPECTION: No tachypneic, No respiratory distress, No retractions, No uses accessory muscles and No tracheal deviation AUSCULTATION: clear to auscultation bilaterally, no rhonchi, no wheezes and lung sounds not diminished Cardio: COMMON NORMALS: regular rate and regular rhythm RATE: regular rate RHYTHM: regular rhythm HEART SOUNDS: no murmurs PERIPHERAL PULSES: radial pulses present GI: INSPECTION: No abdominal distension AUSCULTATION: No hyperactive bowel sounds and No hypoactive bowel sounds PALPATION: Yes tender (Periumbilical), No guarding and No rigid PERCUSSION: no dullness to percussion and no tympanic to percussion Neuro: SENSORIUM/ORIENTATION: Yes oriented to person, Yes oriented to place and Yes oriented to time Psych: COMMON NORMALS: mental status grossly normal Skin: COMMON NORMALS: no rashes or lesions noted GENERAL SKIN EXAM: no rashes or lesions noted Course Vital Signs: Vital signs: Vital Signs Temperature 99.5 F 11/06/19 02:27 Pulse Rate 63 11/06/19 02:27 Respiratory Rate 16 11/06/19 02:27 Blood Pressure 155/75 11/06/19 02:27 Pulse Oximetry 96 11/06/19 02:27 MDM - Abdominal Pain MDM Narrative: Medical decision making narrative: 69-year-old male with worsening of his normal ventral hernia pain, for which she has surgery scheduled this coming week. His white blood cell count is 10.8 without significant left shift. He has normal laboratory otherwise. On CAT scan, there is no strangulation or bowel obstruction. Interestingly there is a 1.6 cm gallstone in the neck of the gallbladder, but without ductal dilatation or wall thickening. He will be allowed home with pain medication and antiemetics. Lab Data: Labs: Lab Results 11/06/19 11/06/19 11/06/19 Range/Units 03:10 03:10 03:10 WBC 10.8 H (4.0-10.0) 10^3/ uL RBC 4.65 (4.1-5.3) 10^6/u L Hgb 14.0 (11.7-16.6) g/dL Hct 41.0 L (42.0-52.0) % MCV 88.2 (80-94) fL MCH 30.1 (28.0-34.0) pg MCHC 34.1 (30.0-36.0) g/dL RDW 14.1 (12.1-15.1) % Plt Count 215 (130-400) 10^3/c mm MPV 11.0 H (7.4-10.4) fL Neut % (Auto) 72.1 % Lymph % (Auto) 14.9 % [place] % (Auto) 9.0 % Eos % (Auto) 3.0 % Baso % (Auto) 0.5 % Neut # (Auto) 7.8 H (1.8-7.7) 10^3/u L Lymph # (Auto) 1.6 (0.8-4.8) 10^3/u L [place] # (Auto) 1.0 H (0.2-0.9) 10^3/u L Eos # (Auto) 0.3 (0.0-0.8) 10^3/u L Baso # (Auto) 0.1 (0.0-0.1) 10^3/u L Nucleated RBC % (a uto) 0 % Nucleated RBCs # 0.0 /100WBC Sodium 140 (136-145) mmol/L Potassium 3.5 (3.5-5.1) mmol/L Chloride 103 (98-107) mmol/L Carbon Dioxide 24 (22-29) mmol/L Anion Gap 16.5 (5-19) BUN 15 (8-23) mg/dL Creatinine 1.0 (0.7-1.2) mg/dL GFR Calculation 74.3 L (90-130) mL/min Glucose 144 H (65-115) mg/dL Calculated Osmolal ity 289 (285-295) mOsm/k g Lactate 1.8 (0.5-2.2) mmol/L Calcium 10.2 (8.5-10.5) mg/dL Total Bilirubin 0.7 (0.15-1.2) mg/dL AST 18 (0-40) U/L ALT 22 (0-41) U/L Alkaline Phosphata se 37 L (40-130) IU/L Total Protein 6.7 (6.6-8.7) g/dL Albumin 4.2 (3.5-5.2) g/dL Globulin 2.5 (1.3-4.6) g/dL Lipase 227 H (13-60) U/L Discharge Plan Discharge Patient Disposition: Home, Self-Care Clinical Impression: Gallstones Hernia, ventral Qualifiers: Obstruction and gangrene presence: without obstruction or gangrene Qualified Code(s): K43.9 - Ventral hernia without obstruction or gangrene Condition: Stable Prescriptions: [place] 5-325 mg tablet 1 tab PO Q6H PRN (Reason: pain) Qty: 10 RF: 0 Zofran 4 mg tablet 4 mg PO Q6H PRN (Reason: nausea and vomiting) Qty: 10 RF: 0 No Action atorvastatin 40 mg tablet 40 mg PO DAILY RF: 0 ntodolsdzkuq-axqh-mghdr acid PO RF: 0 amlodipine 5 mg tablet 5 mg PO DAILY Qty: 30 RF: 3 metformin 1,000 mg tablet 1,000 mg PO BID RF: 0 allopurinol 300 mg tablet 300 mg PO DAILY RF: 0 hydrochlorothiazide 25 mg tablet 25 mg PO DAILY RF: 0 benazepril 40 mg tablet 40 mg PO DAILY RF: 0 Aspir-81 81 mg Tablet,Delayed Release (Dr/Ec) 162 mg PO DAILY RF: 0 Lumigan 0.01 % Drops 1 drp OPHTHALMIC (EYE) QPM RF: 0 metoprolol tartrate 25 mg tablet 12.5 mg PO BID Qty: 30 RF: 0 nitroglycerin 400 mcg powder in packet 0.4 mg SUBLINGUAL Q5M PRN (Reason: chest pain) Qty: 36 RF: 0 Discharge Orders: Discharge Order (Routine); Ordered 11/06/19 Ordered By: Stew Kirkland Referrals: Yo Bennett MD [Physician] - Discharge Diet: Advance as tolerated Discharge Activity: Resume usual activity Patient Instructions: Biliary Colic (ED), Ventral Hernia (ED) Activity Restrictions/Additional Instructions: Clear liquid diet 12 hours, advance as tolerated after that. Return for fever greater than 100, worsening pain despite treatment, vomiting liquids or medications. Call your doctor later this morning to let them know you were here. Coding Level of Care Code ED Local Area Network Systems Adminstrator for Manang Fwd Exam Comprehensive
[2019-11-06 04:34] VITALS: BP 134/77; PULSE 78; RESP 16; O2SAT 94
[2019-11-06 05:34] VITALS: BP 121/82; PULSE 78; RESP 16; O2SAT 64
[2019-11-06 06:04] VITALS: BP 115/61; PULSE 77; RESP 16; O2SAT 64
--- NOTE | 2019-11-07 10:55 | DCPLANNER ---
Patient is to followup with Dr. Bennett, at [facility]. it operations manager called the clinic, spoke with Tayler, and Lina, gave clinic patients information. it operations manager was told that patients information would be printed and reviewed. Clinic will call patient with appointment information.
--- NOTE | 2019-11-10 10:02 | DCPLANNER ---
Patient had an appointment scheduled for 11.07.19 with [facility]. Patient did attend the appointment.
== END 2019-11-06 06:37 | disposition home or self-care (01) ==
PROVIDERS: Emergency Provider Emergency Medicine
DX: K43.9 Ventral hernia without obstruction or gangrene (principal); K80.80 Other cholelithiasis without obstruction; Z79.82 Long term (current) use of aspirin; Z79.84 Long term (current) use of oral hypoglycemic drugs
CPT/HCPCS: 12345; 74177; 80053; 83605; 83690; 85025; 96361; 96374; 96375; 99283; J2270; J2405; J7030; Q9967

== ENCOUNTER 2019-11-08 08:46 | Day surgery (SDC) | payer MEDICARE, SELFPAY ==
[2019-11-07 13:04] VITALS: BMI 31.0
[2019-11-08] VITALS (12 sets, daily range): BP systolic 154–186; BP diastolic 80–91; PULSE 58–64; RESP 16–20; TEMP 36.1–36.7; O2SAT 87–98
[2019-11-08] MEDS: sodium chloride 0.9% 1,000 ML 30 ML IV (09:11)
[2019-11-08 09:17] LABS: Glucose Point of Care 129 mg/dL (70-110)
--- NOTE | 2019-11-08 09:22 | ANES.PREANE2 ---
Pre-Anesthetic Assessment Pre-Anesthetic Assessment: Height/Weight: Height 1.75 m Weight 95.254 kg Temp Pulse Resp BP Pulse Ox 97 F L 58 L 18 164/84 96 11/08/19 09:03 11/08/19 09:03 11/08/19 09:03 11/08/19 09:03 11/08/19 09:03 Preop Diagnosis: Umbilical hernia Proposed Procedure: Operation Date: 11/08/19 10:20 Proposed Procedures p Open umbilical hernia repair 36929 K42.0 umbilical hernia with obstruction without gangrene(Not Applicable) - Yo Bennett MD Familial anesthetic complications: None Was Beta Denise taken within 24 hours: Yes Last intake: Intake Last Liquid Date 11/07/19 Last Liquid Time 22:00 Last Solid Date 11/07/19 Last Solid Time 19:30 Exam: Pre-Anes Outpt Exam: alert, oriented x 3, clear to auscultation bilaterally and regular rate & rhythm Airway: Submandibular: WNL Cervical ROM: WNL MP: 2 Dentition: Full History/ROS: No significant history except as noted Pulmonary: Pulmonary: None reported CV/HEM: CV/HEM: HTN : : None reported Hepatic: Hepatic: None reported GI: GI: None reported Metabolic: Metabolic: DM Musc/skel: Musc/skel: None reported Neuropsych: Neuropsych: None reported Anesthetic Plan: ASA status: 2 Anesthesia: Anesthesia Evaluation and General Risk of > 500 ml blood loss (7ml/kg in children): No Meds/Allergies Current Medications: Current Medications Generic Name Dose Route Start Last Admin Trade Name Freq PRN Reason Stop Dose Admin Sodium Chloride 1,000 mls @ 30 ml s/hr 11/08/19 09:00 11/08/19 09:11 Sodium Chloride 0.9% IV 11/09/19 08:59 30 mls/hr .Q24H AUDIE Administration PFSH Anesthesia PFSH: Medical History (Updated 11/08/19 @ 09:02 by Yo Bennett MD) Diverticulosis Hyperlipidemia Hypertension Non-insulin dependent type 2 diabetes mellitus Umbilical hernia, incarcerated Surgical History History of appendectomy S/P tonsillectomy Status post colonoscopy (~2013) Family History Grandmother Hypertension Diabetes Denies family history of CAD (coronary artery disease) Social History Smoking and tobacco status: never smoked Alcohol intake: never History of recent travel: No Data Anesthesia Other Labs: Laboratory Results - last 48 hr 11/08/19 09:15 POC Glucose 129 Cardiac Studies: No Data to Display
--- NOTE | 2019-11-08 10:07 | PM.OP ---
Operative Report Date of procedure: November 08, 2019 Pre-op Diagnosis: Umbilical hernia Post-op Diagnosis: 2 cm umbilical hernia containing omentum Procedure Done: Open primary repair of umbilical hernia Pathology: none sent Surgeon: Yo Bennett Anesthesia: General Estimated blood loss (mL): 5 Condition: stable Disposition: PACU Procedure: The patient was taken to the operating room and intubated under general anesthesia after IV antibiotic had been administered. The abdomen was prepped and draped in a sterile manner. A 2 cm infraumbilical curvilinear incision was made using a 15 blade, a hernial sac dissected out using electrocautery and dissection with hemostats. The hernial sac was opened and omentum was reduced into the peritoneal cavity. Interrupted sutures using 0 Vicryl was used to close the hernial defect without any tension. The subcutaneous tissue was approximated using 3-0 Vicryl and skin was closed using running subcuticular 4-0 Monocryl sutures. Dermabond was then applied and 10 mL of 0.5% Marcaine was infiltrated around the incision. A 2 x 2 gauze was then placed within the umbilicus and sterile dressings are applied. The patient was stable throughout the procedure.
--- NOTE | 2019-11-08 10:28 | SUR.PHASEI ---
1015- PT ARRIVES TO PACU, QUILT STUFFER BEGINS VENTILATION WITH AMBU BAG PT SHOWS SIGNS OF SPASM. DR CORCORAN AND DR NICOLAS AT THE BEDSIDE TO ASSIST. LEFT NASAL TRUMPET PLACED TO LEFT NARE. SUGAMMADEX ADMINISTERED PER PHYSICIAN ORDER. O2 SAT 97% WITH SIMPLE MASK APPLICATION AT 8LPM.
[2019-11-08] MEDS: ondansetron 2 mg/ML SDV 2 mL 4 MG IVP ×2 (10:40→10:53)
[2019-11-08 10:52] LABS: Glucose Point of Care 151 mg/dL (70-110)
[2019-11-08] MEDS: HYDROcodone-acetaminophen 5-325 mg Tablet 1 TAB PO (11:36)
--- NOTE | 2019-11-09 20:06 | W.PM.OPSUD ---
Surgery/Procedure H&P Update DATE OF PROCEDURE: November 08, 2019 DATE H&P PERFORMED: 11/07/19 H&P UPDATE INFORMATION: I have reviewed H&P completed within last 30 days, I have examined patient prior to procedure and No changes to prior documentation PREOP DIAGNOSIS: Umbilical hernia PLANNED PROCEDURE: Operation Date: 11/08/19 10:20 Proposed Procedures p Open umbilical hernia repair 17086 K42.0 umbilical hernia with obstruction without gangrene(Not Applicable) - Yo Bennett MD
== END 2019-11-08 12:00 | disposition home or self-care (01) ==
PROVIDERS: PCP Nurse Practitioner; Visit Provider Surgery
PROC: (CPT 49585; principal; 2019-11-08 10:20)
DX: K42.9 Umbilical hernia without obstruction or gangrene (principal); I10 Essential (primary) hypertension; E11.9 Type 2 diabetes mellitus without complications; E78.5 Hyperlipidemia, unspecified; Z82.49 Family history of ischemic heart disease and other diseases of the circulatory system; Z83.3 Family history of diabetes mellitus; Z79.82 Long term (current) use of aspirin
CPT/HCPCS: 49585; 12345; 36416; 82962; J1885; J2001; J2405; J2704; J2710; J3010; J3490; J7030

== ENCOUNTER 2020-11-24 20:14 | Emergency (ER) | payer MEDICARE, SELFPAY ==
[2020-11-24 20:25] VITALS: BP 174/90; PULSE 66; RESP 18; TEMP 36.4; O2SAT 96; BMI 31.6
--- NOTE | 2020-11-24 21:38 | ECG_ITS ---
[facility] Test Date: 2020-11-24 Pat Name: Toan Bejarano Department: Room: Gender: Male Plating Inspector: : 1950 Requested By: Sri Goode Order Number: [id number] Rakan MD: Nicholas Zaman M.D. Measurements Intervals [place] Rate: 64 P: 49 NV: 173 QRS: 35 QRSD: 113 T: -4 QT: 387 QTc: 399 Interpretive Statements SINUS RHYTHM POSSIBLE RIGHT VENTRICULAR CONDUCTION DELAY [RSR (QR) IN V1/V2] NONSPECIFIC T-WAVE ABNORMALITY Compared to ECG 07/16/2019 23:35:07 Sinus bradycardia no longer present Intraventricular conduction delay no longer present T-wave abnormality still present Electronically Signed On 11-25-2020 11:01:24 CDT by Nicholas Zaman M.D. [id number]
[2020-11-24 22:31] LABS: Urine Color Yellow (Yellow)
[2020-11-24 22:32] LABS: Add Urine Microscopic? YES; Bilirubin Urine Neg (Negative); Blood Urine 2+ (Negative); Glucose Urine UA 4+ (Normal); Ketones Urine 2+ (Negative); Leukocyte Esterase Urine Negative (Negative); Nitrate Urine Negative (Negative); Protein Urine 3+ (Negative); Specific Gravity, Urine 1.015 (1.005-1.030); Urine Appearance Clear (CLEAR); Urobilinogen Urine Norm (Negative); pH Urine 5 (5-7)
[2020-11-24 22:41] LABS: WBC Urine 0-4 /hpf (0-5)
[2020-11-24 22:42] LABS: Add Urine Culture? No; RBC Urine 0-4 /hpf (0-2)
[2020-11-24 23:05] VITALS: BP 184/92; RESP 16
[2020-11-24 23:13] LABS: Basophils # 0.1 10^3/uL (0.0-0.1); Basophils % 0.5 %; Eosinophils # 0.1 10^3/uL (0.0-0.8); Eosinophils % 0.6 %; Hematocrit 44.8 % (42.0-52.0); Hemoglobin 15.5 g/dL (11.7-16.6); Lymphocytes # 1.8 10^3/uL (0.8-4.8); Lymphocytes % 15.5 %; Mean Corpuscular HGB Conc 34.6 g/dL (30.0-36.0); Mean Corpuscular Volume 83.9 fL (80-94); Mean Platelet Volume 11.6 fL (7.4-10.4); Monocytes # 0.9 10^3/uL (0.2-0.9); Monocytes % 8.1 %; Neutrophils # 8.55 10^3/uL (1.8-7.7); Neutrophils % 74.9 %; Nucleated Red Blood Cells % 0 %; Platelet Count 157 10^3/cmm (130-400); Red Blood Count 5.34 10^6/uL (4.1-5.3); Red Cell Distribution Width 13.6 % (12.1-15.1); White Blood Count 11.4 10^3/uL (4.0-10.0)
[2020-11-24 23:36] LABS: Troponin(5th) Baseline 12 ng/L (0-15)
--- NOTE | 2020-11-24 23:36 | CTR_ITS ---
PROCEDURE INFORMATION: Exam: CT Abdomen And Pelvis With Contrast Exam date and time: 11/24/2020 11:47 PM Age: 70 years old Clinical indication: Prior surgery; Surgery date: 6+ months; Surgery type: Appy, hernia; Patient HX: C/O bloating and pressure w llq abd pain; Additional info: Llq pain, bloating TECHNIQUE: Imaging protocol: Computed tomography of the abdomen and pelvis with contrast. Radiation optimization: All CT scans at this facility use at least one of these dose optimization techniques: automated exposure control; mA and/or kV adjustment per patient size (includes targeted exams where dose is matched to clinical indication); or iterative reconstruction. Contrast material: OMNI 300; Contrast volume: 95 ml; Contrast route: INTRAVENOUS (IV); COMPARISON: CT abdomen pelvis w con* [id number] 11/06/2019 3:50 AM RADIATION DOSE METRICS: Total DLP (mGy-cm): 1709.56 FINDINGS: Lungs: Some strandy opacities superimposed over the left hemidiaphragm most probably representing atelectasis. Liver: Normal. No mass. Gallbladder and bile ducts: There is a prominent gallstone present. Pancreas: There are hazy opacity seen adjacent to the pancreatic head, findings that could represent mild inflammatory changes and pancreatitis. Spleen: Normal. No splenomegaly. Adrenal glands: There is a stable right adrenal mass measuring up to 2.4 cm, stable since 11/06/2019. Kidneys and ureters: Strandy opacities are seen in the left perinephric fascia likely representing chronic scarring appearing similar to that present on 11/06/2019. However, inflammatory changes cannot be entirely excluded. Stomach and bowel: Diverticula are seen on the descending and sigmoid colon. There are no inflammatory changes seen to suggest diverticulitis. Appendix: Status post appendectomy. Intraperitoneal space: Unremarkable. No free air. No significant fluid collection. Vasculature: Unremarkable. No abdominal aortic aneurysm. Lymph nodes: Unremarkable. No enlarged lymph nodes. Urinary bladder: Unremarkable as visualized. Reproductive: Unremarkable as visualized. Bones/joints: Unremarkable. No acute fracture. Soft tissues: There are small bilateral inguinal hernias containing fat. CT/CT abdomen pelvis w con* [id number] IMPRESSION: 1. Diffuse haziness seen adjacent to the pancreatic head, findings suggesting pancreatitis. 2. Prominent gallstone 3. Stable right adrenal mass 4. Stable strandy opacities are seen in the left perinephric fascia likely representing chronic scarring. However, inflammatory changes cannot be entirely excluded. 5. Small bilateral inguinal hernias containing fat. Radiation Dose CTDIVOL = (mGy): DLP = 1709.56 (mGy-cm)
[2020-11-24 23:38] LABS: Alkaline Phosphatase 83 IU/L (40-130); Blood Urea Nitrogen 14 mg/dL (8-23); Calcium 9.4 mg/dL (8.5-10.5); Carbon Dioxide 24 mmol/L (22-29); Chloride 94 mmol/L (98-107); Globulin 2.6 g/dL (1.3-4.6); Glomerular Filtration Rate 164.9 mL/min (90-130); Glucose 299 mg/dL (65-115); Lipase 85 U/L (13-60); Osmolality Calculated 286 mOsm/kg (285-295); Sodium 132 mmol/L (136-145); Total Bilirubin 1.5 mg/dL (0.15-1.2); Total Protein 6.6 g/dL (6.6-8.7)
--- NOTE | 2020-11-24 23:38 | ECG_ITS ---
[facility] Test Date: 2020-11-24 Pat Name: Toan Bejarano Department: Room: Gender: Male Vegetable Cook: : 1950 Requested By: Sri Goode Order Number: [id number] Rakan MD: Nicholas Zaman M.D. Measurements Intervals [place] Rate: 58 P: 22 VA: 164 QRS: 38 QRSD: 116 T: 58 QT: 402 QTc: 396 Interpretive Statements SINUS BRADYCARDIA MODERATE INTRAVENTRICULAR CONDUCTION DELAY [110+ ms QRS DURATION] NONSPECIFIC T-WAVE ABNORMALITY Compared to ECG 11/24/2020 22:05:30 Intraventricular conduction delay now present Sinus rhythm no longer present T-wave abnormality still present Electronically Signed On 11-25-2020 11:05:16 CDT by Nicholas Zaman M.D. [email or web address]/store/[id number]
[2020-11-24 23:40] LABS: Anion Gap 17.5 (5-19); Potassium 3.5 mmol/L (3.5-5.1)
[2020-11-24 23:49] LABS: Alanine Aminotransferase < 5 U/L (0-41); Aspartate Amino Transferase 5 U/L (0-40)
[2020-11-24] MEDS: iohexol 300 mg/mL 100 mL Btl IV (23:55)
[2020-11-25 01:32] VITALS: BP 165/89; PULSE 73; RESP 16; O2SAT 94
--- NOTE | 2020-11-25 05:24 | W.ED.ABDPA2 ---
HPI - Abdominal Pain General: Chief Complaint: Abdominal Pain Stated Complaint: HTN, Stomach preassure Time Seen by Provider: 11/24/20 23:09 History of Present Illness: HPI narrative: 70-year-old male who is experienced some abdominal bloating and discomfort for several hours. No nausea, no vomiting. No diarrhea. No fever. He noticed that his blood pressure was high at home, and here as well. He was concerned about that as well. He denies any chest discomfort or shortness of breath. MD elicited complaint: abdominal pain Pertinent past history: none Onset (ago): hour(s) Pain Consistency: constant Location: Diffuse Quality: aching and dull Radiation: none Migration to: no migration Exacerbating factors: nothing Relieving factors: nothing Associated Symptoms: Reports belching and bloating; Denies change in bowel habits, change in stool character, coffee ground emesis, diarrhea, dysuria, fever(s), hematemesis, nausea and vomiting Review of Systems Const: Denies: fever(s) Eyes: Denies: change in vision Card: Denies: chest pain or palpitations Resp: Denies: dyspnea, productive cough or non-productive cough GI: Reports: bloating and belching; Denies: nausea, vomiting, hematemesis, coffee ground emesis, diarrhea, change in bowel habits or change in stool character : Denies: dysuria PFSH ED PFSH: Medical History (Updated 11/25/20 @ 01:23 by Stew Kirkland DO) Diverticulosis Hyperlipidemia Hypertension Non-insulin dependent type 2 diabetes mellitus Umbilical hernia, incarcerated Surgical History (Updated 11/22/19 @ 07:33 by Yo Bennett MD) History of appendectomy History of umbilical hernia repair S/P tonsillectomy Status post colonoscopy (~2013) Family History Grandmother Hypertension Diabetes Denies family history of CAD (coronary artery disease) Social History Smoking and tobacco status: never smoked Alcohol intake: never History of recent travel: No Physical Exam Const: GENERAL APPEARANCE: well developed ORIENTATION/CONSCIOUSNESS: Yes oriented to person, Yes oriented to place and Yes oriented to time HENMT: COMMON NORMALS: normocephalic and Normal external nose present HEAD & SCALP: normocephalic FACE & SINUS: normal facial exam NOSE: Normal external nose present and No nasal discharge present Eye: COMMON NORMALS: Equal, round and reactive pupils present, EOMs intact bilaterally and conjunctivae normal EYELID: eyelids normal CONJUNCTIVA: Yes conjunctivae normal PUPIL: Yes Equal, round and reactive pupils present Neck/C-Spine: GENERAL: No tracheal deviation Chest: COMMONS NORMALS: normal inspection of the chest CHEST: No tenderness Resp: COMMON NORMALS: clear to auscultation bilaterally EFFORT & INSPECTION: No tachypneic, No respiratory distress, No retractions, No uses accessory muscles and No tracheal deviation AUSCULTATION: clear to auscultation bilaterally, no rhonchi, no wheezes and lung sounds not diminished Cardio: COMMON NORMALS: regular rate and regular rhythm RATE: regular rate RHYTHM: regular rhythm HEART SOUNDS: no murmurs PERIPHERAL PULSES: radial pulses present GI: INSPECTION: Yes abdominal distension AUSCULTATION: No Hyperactive bowel sounds present and No Hypoactive bowel sounds present PALPATION: Yes Tenderness to palpation present (GI), No Guarding due to palpation present (GI), No Rigid due to palpation and No Rebound tenderness present PERCUSSION: no dullness to percussion and no tympanic to percussion : COMMON NORMALS: Yes no CVA tenderness BLADDER/KIDNEY EXAM: Yes no CVA tenderness Back/Pelvis: COMMON NORMALS: no CVA tenderness Neuro: SENSORIUM/ORIENTATION: Yes oriented to person, Yes oriented to place and Yes oriented to time Psych: COMMON NORMALS: mental status grossly normal Skin: COMMON NORMALS: no rashes or lesions noted GENERAL SKIN EXAM: no rashes or lesions noted Course Vital Signs: Vital signs: Vital Signs Temperature 97.5 F L 11/24/20 20:25 Pulse Rate 73 11/25/20 01:32 Respiratory Rate 16 11/25/20 01:32 Blood Pressure 165/89 11/25/20 01:32 Pulse Oximetry 94 11/25/20 01:32 MDM - Abdominal Pain MDM Narrative: Medical decision making narrative: 70-year-old male with abdominal distention, discomfort, and hypertension. Hypertension took care of itself while here. He did not have to be treated for this. His white blood cell count was 11.4. Hemoglobin 15. Other labs benign. His abdominal CT shows a mildly inflamed pancreas. His lipase is only 85. He has a prominent gallstone in the gallbladder without wall thickening or signs of pericholecystitis. There is no bile duct dilatation. He is not tender over his gallbladder. Acuna sign is negative. He will be allowed home for outpatient treatment of mild pancreatitis including a liquid diet. Lab Data: Labs: Lab Results 11/24/20 11/24/20 11/24/20 Range/Units 21:59 23:08 23:08 WBC 11.4 H (4.0-10.0) 10^3/ uL RBC 5.34 H (4.1-5.3) 10^6/u L Hgb 15.5 (11.7-16.6) g/dL Hct 44.8 (42.0-52.0) % MCV 83.9 (80-94) fL MCH 29.0 (28.0-34.0) pg MCHC 34.6 (30.0-36.0) g/dL RDW 13.6 (12.1-15.1) % Plt Count 157 (130-400) 10^3/c mm MPV 11.6 H (7.4-10.4) fL Neut % (Auto) 74.9 % Lymph % (Auto) 15.5 % [place] % (Auto) 8.1 % Eos % (Auto) 0.6 % Baso % (Auto) 0.5 % Neut # (Auto) 8.55 H (1.8-7.7) 10^3/u L Lymph # (Auto) 1.8 (0.8-4.8) 10^3/u L [place] # (Auto) 0.9 (0.2-0.9) 10^3/u L Eos # (Auto) 0.1 (0.0-0.8) 10^3/u L Baso # (Auto) 0.1 (0.0-0.1) 10^3/u L Nucleated RBC % (a uto) 0 % Nucleated RBCs # 0.0 /100WBC Sodium 132 L (136-145) mmol/L Potassium 3.5 (3.5-5.1) mmol/L Chloride 94 L (98-107) mmol/L Carbon Dioxide 24 (22-29) mmol/L Anion Gap 17.5 (5-19) BUN 14 (8-23) mg/dL Creatinine 0.5 L (0.7-1.2) mg/dL GFR Calculation 164.9 H (90-130) mL/min Glucose 299 H (65-115) mg/dL Calculated Osmolal ity 286 (285-295) mOsm/k g Calcium 9.4 (8.5-10.5) mg/dL Total Bilirubin 1.5 H (0.15-1.2) mg/dL AST 5 (0-40) U/L ALT < 5 (0-41) U/L Alkaline Phosphata se 83 (40-130) IU/L Troponin T Baselin e (0-15) ng/L Total Protein 6.6 (6.6-8.7) g/dL Albumin 4.0 (3.5-5.2) g/dL Globulin 2.6 (1.3-4.6) g/dL Lipase 85 H (13-60) U/L Urine Color Yellow (Yellow) Urine Appearance Clear (CLEAR) Urine pH 5 (5-7) Ur Specific Gravit y 1.015 (1.005-1.030) Urine Protein 3+ H (Negative) Urine Glucose (UA) 4+ H (Normal) Urine Ketones 2+ H (Negative) Urine Blood 2+ H (Negative) Urine Nitrate Negative (Negative) Urine Bilirubin Neg (Negative) Urine Urobilinogen Norm (Negative) mg/dL Ur Leukocyte Loree ase Negative (Negative) Urine RBC 0-4 H (0-2) /hpf Urine WBC 0-4 H (0-5) /hpf Ur Squamous Epith Cells None (0-5) /hpf Amorphous Sediment Not Reportable Urine Bacteria None (NONE) /hpf 11/24/20 Range/Units 23:08 WBC (4.0-10.0) 10^3/ uL RBC (4.1-5.3) 10^6/u L Hgb (11.7-16.6) g/dL Hct (42.0-52.0) % MCV (80-94) fL MCH (28.0-34.0) pg MCHC (30.0-36.0) g/dL RDW (12.1-15.1) % Plt Count (130-400) 10^3/c mm MPV (7.4-10.4) fL Neut % (Auto) % Lymph % (Auto) % [place] % (Auto) % Eos % (Auto) % Baso % (Auto) % Neut # (Auto) (1.8-7.7) 10^3/u L Lymph # (Auto) (0.8-4.8) 10^3/u L [place] # (Auto) (0.2-0.9) 10^3/u L Eos # (Auto) (0.0-0.8) 10^3/u L Baso # (Auto) (0.0-0.1) 10^3/u L Nucleated RBC % (a uto) % Nucleated RBCs # /100WBC Sodium (136-145) mmol/L Potassium (3.5-5.1) mmol/L Chloride (98-107) mmol/L Carbon Dioxide (22-29) mmol/L Anion Gap (5-19) BUN (8-23) mg/dL Creatinine (0.7-1.2) mg/dL GFR Calculation (90-130) mL/min Glucose (65-115) mg/dL Calculated Osmolal ity (285-295) mOsm/k g Calcium (8.5-10.5) mg/dL Total Bilirubin (0.15-1.2) mg/dL AST (0-40) U/L ALT (0-41) U/L Alkaline Phosphata se (40-130) IU/L Troponin T Baselin e 12 (0-15) ng/L Total Protein (6.6-8.7) g/dL Albumin (3.5-5.2) g/dL Globulin (1.3-4.6) g/dL Lipase (13-60) U/L Urine Color (Yellow) Urine Appearance (CLEAR) Urine pH (5-7) Ur Specific Gravit y (1.005-1.030) Urine Protein (Negative) Urine Glucose (UA) (Normal) Urine Ketones (Negative) Urine Blood (Negative) Urine Nitrate (Negative) Urine Bilirubin (Negative) Urine Urobilinogen (Negative) mg/dL Ur Leukocyte Loree ase (Negative) Urine RBC (0-2) /hpf Urine WBC (0-5) /hpf Ur Squamous Epith Cells (0-5) /hpf Amorphous Sediment Urine Bacteria (NONE) /hpf Discharge Plan Discharge Patient Disposition: Home Clinical Impression: Acute pancreatitis Qualifiers: Pancreatitis type: unspecified pancreatitis type Acute pancreatitis complication: no infection or necrosis Qualified Code(s): K85.90 - Acute pancreatitis without necrosis or infection, unspecified Condition: Stable Prescriptions: No Action amlodipine 5 mg tablet See Rx Instructions .ROUTE .COMPLEX Qty: 30 RF: 3 hydrocodone-acetaminophen [[place]] 5-325 mg tablet 1 tab PO Q6H PRN (Reason: pain) Qty: 10 RF: 0 atorvastatin 20 mg tablet 20 mg PO DAILY RF: 0 nitroglycerin 0.4 mg tablet, sublingual 4 mg sublingual PRN PRN (Reason: Chest Pain) RF: 0 fenofibrate 160 mg tablet 160 mg PO DAILY RF: 0 multivitamin [Multiple Vitamins] Tablet 1 tab PO DAILY RF: 0 latanoprost 0.005 % drops 1 drp ophthalmic (eye) DAILY RF: 0 metoprolol tartrate 25 mg tablet 25 mg PO BID RF: 0 metformin 1,000 mg tablet 1,000 mg PO BID RF: 0 allopurinol 300 mg tablet 300 mg PO DAILY RF: 0 hydrochlorothiazide 25 mg tablet 25 mg PO DAILY RF: 0 benazepril 40 mg tablet 40 mg PO DAILY RF: 0 aspirin [Aspir-81] 81 mg Tablet,Delayed Release (Dr/Ec) 162 mg PO DAILY RF: 0 Discharge Orders: Discharge ED (Routine); Ordered 11/25/20 Ordered By: Stew Kirkland Referrals: Bladimir Ridley [Primary Care Provider] - 4-7 days Discharge Diet: Clear Liquid Discharge Activity: Increase activity as tolerated Patient Instructions: Pancreatitis (ED) Activity Restrictions/Additional Instructions: Follow a clear liquid diet for the next 48 hours or so, you may increase your diet as tolerated if your bloating and discomfort completely resolve. You need to have repeat pancreas enzymes drawn later this week. Contact your doctor for this. Return for increasing discomfort, fever greater than 100, vomiting liquids or medications, any other concerning symptoms. Continue to monitor your blood pressure twice daily report those numbers to your physician. Coding Level of Care Code ED Mud Boss for Antonio Dickinson
== END 2020-11-25 01:33 | disposition home or self-care (01) ==
PROVIDERS: Registered Nurse; Emergency Provider Emergency Medicine; PCP Physician Assistant Medical
DX: K85.90 Acute pancreatitis without necrosis or infection, unspecified (principal); Z79.82 Long term (current) use of aspirin; Z79.84 Long term (current) use of oral hypoglycemic drugs; E78.5 Hyperlipidemia, unspecified; I10 Essential (primary) hypertension; E11.9 Type 2 diabetes mellitus without complications
CPT/HCPCS: 74177; 80053; 81001; 83690; 84484; 85025; 93005; 99283; Q9967

== ENCOUNTER → 2021-12-16 11:00 | Outpatient (BNVA) | payer MEDICARE, SELFPAY | PROVIDERS: PCP Physician Assistant Medical; Visit Provider Emergency Medicine | DX: L08.9 Local infection of the skin and subcutaneous tissue, unspecified (principal); S80.861A Insect bite (nonvenomous), right lower leg, initial encounter; W57.XXXA Bitten or stung by nonvenomous insect and other nonvenomous arthropods, initial encounter; Z91.89 Other specified personal risk factors, not elsewhere classified | CPT/HCPCS: 86618; 86666; 86757 ==

== ENCOUNTER 2022-02-03 16:14 | Observation (INO) | payer MEDICARE, OTHER, SELFPAY ==
[2022-02-03] VITALS (9 sets, daily range): BP systolic 110–206; BP diastolic 83–98; PULSE 54–69; RESP 15–20; TEMP 36.8–37.1; O2SAT 94–99; BMI 30.7
--- NOTE | 2022-02-03 16:24 | XRR_ITS ---
PROCEDURE INFORMATION: Exam: XR Chest Exam date and time: 02/03/2022 5:04 PM Age: 71 years old Clinical indication: Angina; Additional info: Chest pain TECHNIQUE: Imaging protocol: Radiologic exam of the chest. Views: 1 view. COMPARISON: CR XR chest 1V portable [id number] 07/16/2019 5:25 PM FINDINGS: Lungs: Unremarkable. No consolidation. Pleural spaces: Unremarkable. No pleural effusion. No pneumothorax. Heart/Mediastinum: Cardiomegaly. Bones/joints: Unremarkable. XR/XR chest 1V portable [id number] IMPRESSION: Cardiomegaly, lungs are clear.
--- NOTE | 2022-02-03 16:42 | ECG_ITS ---
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 Measurements Intervals [place] Rate: 54 P: 45 [place]: 194 QRS: 39 QRSD: 109 T: 5 QT: 421 QTc: 401 Interpretive Statements SINUS BRADYCARDIA POSSIBLE RIGHT VENTRICULAR CONDUCTION DELAY [RSR (QR) IN V1/V2] Compared to ECG 11/24/2020 23:33:57 Intraventricular conduction delay no longer present T-wave abnormality no longer present Electronically Signed On 02-03-2022 18:55:14 CDT by Nicholas Zaman M.D. [id number]
--- NOTE | 2022-02-03 16:42 | PC.NURSE ---
Patient a/o, arrives with c/o left chest pain, elevated blood pressure, patient states he has taken his medications as prescribed and was started on amlodipine last week by his PCP who had instructed him to come to the ER if blood pressure got over 200, per patient has had 3 pressures greater than 200 before patient wanting to come to the ER. Patient report mild chest pain to left chest, EKG obtained, ASA given per orders, INT placed with blood draw.
[2022-02-03] MEDS: aspirin 81 mg Chew Tablet 324 MG PO (16:47)
[2022-02-03 17:03] LABS: Basophils # 0.1 10^3/uL (0.0-0.1); Basophils % 0.7 %; Eosinophils # 0.1 10^3/uL (0.0-0.8); Eosinophils % 1.7 %; Hematocrit 45.3 % (42.0-52.0); Hemoglobin 15.3 g/dL (11.7-16.6); Lymphocytes # 1.4 10^3/uL (0.8-4.8); Mean Corpuscular HGB Conc 33.8 g/dL (30.0-36.0); Mean Corpuscular Hemoglobin 29.1 pg (28.0-34.0); Mean Corpuscular Volume 86.3 fl (80-94); Mean Platelet Volume 11.8 fL (7.4-10.4); Monocytes # 0.5 10^3/uL (0.2-0.9); Monocytes % 6.6 %; Neutrophils # 6.06 10^3/uL (1.8-7.7); Neutrophils % 73.8 %; Nucleated Red Blood Cells % 0 %; Platelet Count 209 10^3/cmm (130-400); Red Blood Count 5.25 10^6/uL (4.1-5.3); White Blood Count 8.2 10^3/uL (4.0-10.0)
[2022-02-03 17:15] LABS: Troponin(5th) Baseline 15 ng/L (0-15)
[2022-02-03 17:16] LABS: Alanine Aminotransferase 15 U/L (0-41); Albumin Level 4.5 g/dL (3.5-5.2); Alkaline Phosphatase 46 IU/L (40-130); Anion Gap 15.6 (5-19); Aspartate Amino Transferase 14 U/L (0-40); Blood Urea Nitrogen 16 mg/dL (8-23); Calcium 9.1 mg/dL (8.5-10.5); Carbon Dioxide 26 mmol/L (22-29); Chloride 103 mmol/L (98-107); Creatine Phosphokinase 73 U/L (39-308); Globulin 2.2 g/dL (1.3-4.6); Glomerular Filtration Rate 83.4 mL/min (90-130); Glucose 96 mg/dL (65-115); Osmolality Calculated 293 mOsm/kg (285-295); Potassium 3.6 mmol/L (3.5-5.1); Sodium 141 mmol/L (136-145); Total Bilirubin 0.8 mg/dL (0.15-1.2); Total Protein 6.7 g/dL (6.6-8.7)
--- NOTE | 2022-02-03 18:05 | W.ED.CHESTPA ---
Documented by User: Osvaldo Valladares DO 02/03/22 18:30 HPI - Chest Pain General: Chief Complaint: Chest Pain Stated Complaint: high BP Time Seen by Provider: 02/03/22 16:23 Source: patient Mode of arrival: ambulatory Limitations: no limitations History of Present Illness: 71-year-old male comes in complaining of elevated blood pressure and intermittent chest pain Connick comes and goes its been going on for several weeks. Not associated with shortness of breath does not radiate no nausea or vomiting. No recent medication changes. Patient has known history of coronary artery disease denies fever sweats chills cough shortness of breath nausea vomiting diarrhea. He is diabetic he is not a smoker. He has been taking all his other medications regularly. MD complaint: chest pain Pertinent past history: coronary artery disease Onset (ago): week(s) Timing of current episode: episodic Prior episodes: Yes Onset: during rest and during exertion Pain location: left chest Pain radiation: none Severity: mild Quality: aching and heaviness Relieving factors: nothing Exacerbating factors: nothing Associated symptoms: Deny abdominal pain, diaphoresis, dyspnea, fever(s), leg edema, nausea, palpitations, sense of impending doom, syncope or vomiting Treatment prior to arrival: none Review of Systems Const: Denies: fever(s), chills, fatigue, malaise or diaphoresis ENMT: Denies: throat pain, ear or mastoid pain, nasal discharge or nasal congestion Card: Reports: chest pain; Denies: palpitations, irregular heart rhythm, edema or syncope Resp: Denies: dyspnea GI: Denies: abdominal pain, nausea or vomiting : Denies: flank pain, dysuria, urinary frequency or urinary urgency Skin/Breast: Denies: rash or pruritus [facility] ED PFSH: Medical History (Updated 02/03/22 @ 20:25 by Min Rocha MD) Diverticulosis Hyperlipidemia Hypertension Non-insulin dependent type 2 diabetes mellitus Umbilical hernia, incarcerated Surgical History History of appendectomy History of umbilical hernia repair S/P tonsillectomy Status post colonoscopy (~2013) Family History Grandmother Hypertension Diabetes Denies family history of CAD (coronary artery disease) Social History Smoking and tobacco status: never smoked Alcohol intake: never History of recent travel: No Physical Exam Const: GENERAL APPEARANCE: cooperative and comfortable ORIENTATION/CONSCIOUSNESS: Yes awake, Yes oriented to person, Yes oriented to place and Yes oriented to time HENMT: COMMON NORMALS: normocephalic, atraumatic and hearing grossly normal bilaterally HEAD & SCALP: normocephalic and atraumatic Resp: COMMON NORMALS: normal respiratory effort, No retractions, No use of accessory muscles and clear to auscultation bilaterally AUSCULTATION: clear to auscultation bilaterally Cardio: COMMON NORMALS: regular rate, regular rhythm and No murmurs present (Cardio) RATE: regular rate RHYTHM: regular rhythm GI: COMMON NORMALS: Soft to palpation and No hepatosplenomegaly present AUSCULTATION: Yes normoactive bowel sounds PALPATION: Yes Soft to palpation, No Tenderness to palpation present (GI), No Guarding due to palpation present (GI) and Yes No hepatosplenomegaly present Extremity: COMMON NORMALS: normal to inspection, capillary refill normal, no clubbing, cyanosis or edema, no calf tenderness and no pedal edema Neuro: SENSORIUM/ORIENTATION: Yes oriented to person, Yes oriented to place and Yes oriented to time Skin: COMMON NORMALS: no rashes or lesions noted GENERAL SKIN EXAM: no rashes or lesions noted Course Vital Signs: Vital signs: Vital Signs Temperature 98.8 F 02/03/22 16:18 Pulse Rate 62 02/03/22 19:30 Respiratory Rate 15 02/03/22 19:30 Blood Pressure 185/96 02/03/22 20:15 Pulse Oximetry 99 02/03/22 19:30 Oxygen Delivery Me thod 02/03/22 18:30 MDM - Chest Pain Medical Decision Making Care signed out to Dr. Garcia at change of shift. See final notes for diagnosis and disposition. Lab Data : 02/03/22 16:30 02/03/22 16:30 Radiology Impressions Chest X-Ray 02/03/22 16:24 IMPRESSION: Cardiomegaly, lungs are clear. Laboratory Results WBC 8.2 10^3/uL (4.0-10.0) 02/03/22 16:30 RBC 5.25 10^6/uL (4.1-5.3) 02/03/22 16:30 Hgb 15.3 g/dL (11.7-16.6) 02/03/22 16: Hct 45.3 % (42.0-52.0) 02/03/22 16: MCV 86.3 fl (80-94) 02/03/22 16: MCH 29.1 pg (28.0-34.0) 02/03/22 16: MCHC 33.8 g/dL (30.0-36.0) 02/03/22 16: RDW 14.0 % (12.1-15.1) 02/03/22 16: Plt Count 209 10^3/cmm (130-400) 02/03/22 16: MPV 11.8 fL (7.4-10.4) H 02/03/22 16:30 Neut % (Auto) 73.8 % 02/03/22 16: Lymph % (Auto) 17.0 % 02/03/22 16:30 Nobles % (Auto) 6.6 % 02/03/22 16:30 Eos % (Auto) 1.7 % 02/03/22 16:30 Baso % (Auto) 0.7 % 02/03/22: Neut # (Auto) 6.06 10^3/uL (1.8-7.7) 02/03/22 16: Lymph # (Auto) 1.4 10^3/uL (0.8-4.8) 02/03/22 16:30 Nobles # (Auto) 0.5 10^3/uL (0.2-0.9) 02/03/22 16:30 Eos # (Auto) 0.1 10^3/uL (0.0-0.8) 02/03/22 16: Baso # (Auto) 0.1 10^3/uL (0.0-0.1) 02/03/22 16: Nucleated RBC % (auto) 0 % 02/03/22: Nucleated RBCs # 0.0 /100WBC 02/03/22 16: Sodium 141 mmol/L (136-145) 02/03/22 16: Potassium 3.6 mmol/L (3.5-5.1) 02/03/22 16:30 Chloride 103 mmol/L (98-107) 02/03/22 16:30 Carbon Dioxide 26 mmol/L (22-29) 02/03/22 16:30 Anion Gap 15.6 (5-19) 02/03/22 16:30 BUN 16 mg/dL (8-23) 02/03/22 16:30 Creatinine 0.9 mg/dL (0.7-1.2) 02/03/22 16:30 GFR Calculation 83.4 mL/min (90-130) L 02/03/22 16:30 Glucose 96 mg/dL (65-115) 02/03/22 16:30 Calculated Osmolality 293 mOsm/kg (285-295) 02/03/22 16:30 Calcium 9.1 mg/dL (8.5-10.5) 02/03/22 16:30 Total Bilirubin 0.8 mg/dL (0.15-1.2) 02/03/22 16:30 AST 14 U/L (0-40) 02/03/22 16:30 ALT 15 U/L (0-41) 02/03/22 16:30 Alkaline Phosphatase 46 IU/L (40-130) 02/03/22 16:30 Creatine Kinase 73 U/L (39-308) 02/03/22 16:30 Troponin T Baseline 15 ng/L (0-15) 02/03/22 16:30 Troponin T 120 Minute 14.76 ng/L (0-15) 02/03/22 18:25 Delta Troponin T -0.24 ABS# (0-10) L 02/03/22 18:25 Total Protein 6.7 g/dL (6.6-8.7) 02/03/22 16:30 Albumin 4.5 g/dL (3.5-5.2) 02/03/22 16:30 Globulin 2.2 g/dL (1.3-4.6) 02/03/22 16:30 Discharge Plan Discharge Patient Disposition: Placed in Observation Admit Provider: Min Rocha Clinical Impression: Chest pain, Hypertension Sign Out Sign Out Data: Patient Sign Out occurred on 02/03/22 at 18:45. Patient's care was discussed, and care was transferred from to Prashant Garcia MD. Coding Level of Care Code ED Trauma Coordinator for Chg Fwd Exam Detailed Documented by User: Prashant Garcia MD 02/03/22 20:34 HPI - Chest Pain General: Chief Complaint: Chest Pain Stated Complaint: high BP Time Seen by Provider: 02/03/22 16:23 PFSH ED PFSH: Medical History (Updated 02/03/22 @ 20:25 by Min Rocha MD) Diverticulosis Hyperlipidemia Hypertension Non-insulin dependent type 2 diabetes mellitus Umbilical hernia, incarcerated Surgical History History of appendectomy History of umbilical hernia repair S/P tonsillectomy Status post colonoscopy (~2013) Family History Grandmother Hypertension Diabetes Denies family history of CAD (coronary artery disease) Social History Smoking and tobacco status: never smoked Alcohol intake: never History of recent travel: No Course Vital Signs: Vital signs: Vital Signs Temperature 98.8 F 02/03/22 16:18 Pulse Rate 62 02/03/22 19:30 Respiratory Rate 15 02/03/22 19:30 Blood Pressure 185/96 02/03/22 20:15 Pulse Oximetry 99 02/03/22 19:30 Oxygen Delivery Me thod 02/03/22 18:30 MDM - Chest Pain Medical Decision Making Care signed out to Dr. Garcia at change of shift. See final notes for diagnosis and disposition. Patient care handoff received from Dr. Valladares pending completion of ED evaluation. Laboratory studies reviewed. EKG is reviewed with nonspecific ST segment abnormalities which appear new, delta troponin is negative. Chest x-ray without acute pathology to explain symptoms. I discussed results of ED evaluation with the patient including estimated risk of major adverse cardiac events based on heart score. I discussed risk ratification. Patient is at least moderate risk. I offered admission which the patient prefers over outpatient follow-up. Discussed with hospitalist service Dr. Rocha and patient admitted to observation for further cardiac testing in satisfactory condition Prashant Garcia MD Emergency Medicine Lab Data : 02/03/22 16:30 02/03/22 16:30 Radiology Impressions Chest X-Ray 02/03/22 16:24 IMPRESSION: Cardiomegaly, lungs are clear. Laboratory Results WBC 8.2 10^3/uL (4.0-10.0) 02/03/22 16:30 RBC 5.25 10^6/uL (4.1-5.3) 02/03/22 16:30 Hgb 15.3 g/dL (11.7-16.6) 02/03/22 16:30 Hct 45.3 % (42.0-52.0) 02/03/22 16:30 MCV 86.3 fl (80-94) 02/03/22 16:30 MCH 29.1 pg (28.0-34.0) 02/03/22 16:30 MCHC 33.8 g/dL (30.0-36.0) 02/03/22 16:30 RDW 14.0 % (12.1-15.1) 02/03/22 16:30 Plt Count 209 10^3/cmm (130-400) 02/03/22 16:30 MPV 11.8 fL (7.4-10.4) H 02/03/22 16:30 Neut % (Auto) 73.8 % 02/03/22 16:30 Lymph % (Auto) 17.0 % 02/03/22 16:30 Nobles % (Auto) 6.6 % 02/03/22 16:30 Eos % (Auto) 1.7 % 02/03/22 16:30 Baso % (Auto) 0.7 % 02/03/22 16:30 Neut # (Auto) 6.06 10^3/uL (1.8-7.7) 02/03/22 16:30 Lymph # (Auto) 1.4 10^3/uL (0.8-4.8) 02/03/22 16:30 Nobles # (Auto) 0.5 10^3/uL (0.2-0.9) 02/03/22 16:30 Eos # (Auto) 0.1 10^3/uL (0.0-0.8) 02/03/22 16:30 Baso # (Auto) 0.1 10^3/uL (0.0-0.1) 02/03/22 16:30 Nucleated RBC % (auto) 0 % 02/03/22 16:30 Nucleated RBCs # 0.0 /100WBC 02/03/22 16:30 Sodium 141 mmol/L (136-145) 02/03/22 16:30 Potassium 3.6 mmol/L (3.5-5.1) 02/03/22 16:30 Chloride 103 mmol/L (98-107) 02/03/22 16:30 Carbon Dioxide 26 mmol/L (22-29) 02/03/22 16:30 Anion Gap 15.6 (5-19) 02/03/22 16:30 BUN 16 mg/dL (8-23) 02/03/22 16:30 Creatinine 0.9 mg/dL (0.7-1.2) 02/03/22 16:30 GFR Calculation 83.4 mL/min (90-130) L 02/03/22 16:30 Glucose 96 mg/dL (65-115) 02/03/22 16:30 Calculated Osmolality 293 mOsm/kg (285-295) 02/03/22 16:30 Calcium 9.1 mg/dL (8.5-10.5) 02/03/22 16:30 Total Bilirubin 0.8 mg/dL (0.15-1.2) 02/03/22 16:30 AST 14 U/L (0-40) 02/03/22 16:30 ALT 15 U/L (0-41) 02/03/22 16:30 Alkaline Phosphatase 46 IU/L (40-130) 02/03/22 16:30 Creatine Kinase 73 U/L (39-308) 02/03/22 16:30 Troponin T Baseline 15 ng/L (0-15) 02/03/22 16:30 Troponin T 120 Minute 14.76 ng/L (0-15) 02/03/22 18:25 Delta Troponin T -0.24 ABS# (0-10) L 02/03/22 18:25 Total Protein 6.7 g/dL (6.6-8.7) 02/03/22 16:30 Albumin 4.5 g/dL (3.5-5.2) 02/03/22 16:30 Globulin 2.2 g/dL (1.3-4.6) 02/03/22 16:30 Discharge Plan Discharge Patient Disposition: Placed in Observation Admit Provider: Min Rocha Clinical Impression: Chest pain, Hypertension Sign Out Sign Out Data: Patient Sign Out occurred on 02/03/22 at 18:45. Patient's care was discussed, and care was transferred from to Prashant Garcia MD. Coding Level of Care Code ED Trauma Coordinator for Chg Fwd Exam Detailed
[2022-02-03] MEDS: hyDRALAzine 20 mg/mL INJ 1 mL 10 MG IVP (18:11)
[2022-02-03] MEDS: amlodipine 5 mg Tablet PO (18:11)
--- NOTE | 2022-02-03 18:25 | ECG_ITS ---
[facility] Test Date: 2022-02-03 Pat Name: Toan Bejarano Department: Room: Gender: Male Co Founder And Chief Strategy Officer: : 1950 Requested By: Osvaldo Farley Order Number: [id number] Rakan MD: Nicholas Zaman M.D. Measurements Intervals [place] Rate: 53 P: 56 [place]: 190 QRS: 49 QRSD: 113 T: 7 QT: 430 QTc: 407 Interpretive Statements SINUS BRADYCARDIA POSSIBLE RIGHT VENTRICULAR CONDUCTION DELAY [RSR (QR) IN V1/V2] POSSIBLE LEFT VENTRICULAR HYPERTROPHY [VOLTAGE CRITERIA PLUS LAE OR QRS WIDENING] NONSPECIFIC T-WAVE ABNORMALITY Compared to ECG 02/03/2022 16:42:44 T-wave abnormality now present Electronically Signed On 02-03-2022 18:58:48 CDT by Nicholas Zaman M.D. [id number]
[2022-02-03 19:03] LABS: Troponin 5 2HR 14.76 ng/L (0-15)
[2022-02-03 19:12] LABS: Troponin 5 2HR Delta -0.24 ABS# (0-10)
--- NOTE | 2022-02-03 20:20 | CTR_ITS ---
PROCEDURE INFORMATION: Exam: CT Head Without Contrast Exam date and time: 02/03/2022 8:31 PM Age: 71 years old Clinical indication: Other: Extreme hbp; Additional info: HTN urgency TECHNIQUE: Imaging protocol: Computed tomography of the head without contrast. Radiation optimization: All CT scans at this facility use at least one of these dose optimization techniques: automated exposure control; mA and/or kV adjustment per patient size (includes targeted exams where dose is matched to clinical indication); or iterative reconstruction. COMPARISON: No relevant prior studies available. RADIATION DOSE METRICS: Total DLP (mGy-cm): 1040.38 FINDINGS: Brain: Normal. No hemorrhage. Unremarkable white matter. No mass effect. Cerebral ventricles: No ventriculomegaly. Paranasal sinuses: Visualized sinuses are unremarkable. No fluid levels. Mastoid air cells: Visualized mastoid air cells are well aerated. Bones/joints: Unremarkable. No acute fracture. Soft tissues: Unremarkable. CT/CT head wo con* [id number] IMPRESSION: No acute intracranial abnormality.
--- NOTE | 2022-02-03 20:22 | PM.HP ---
Providers/Chief Complaint Admitting Physician: Min Rocha MD Primary Care Provider: Bladimir Ridley Chief Complaint: high BP History of Present Illness Toan Bejarano is a 71 year old male with a past medical history of hypertension, hyperlipidemia, obesity, cmr-mtiglos-tnnnhzfma type 2 diabetes mellitus who presents [facility] due to not feeling well, fatigue, malaise, chest pain, and elevated blood pressures. Patient tells me that he has been feeling well, his blood sugars have been running high, he talk to his primary care who told him to come to the emergency room. He also has been having intermittent substernal chest pain, no diaphoresis, no shortness of breath, no lightheadedness, dizziness, no paresthesias, no facial droop no slurring of his words. Review of Systems Const: Denies: fever(s) Eyes: Denies: change in vision ENMT: Denies: nasal congestion Card: Reports: chest pain; Denies: palpitations or dyspnea on exertion Resp: Denies: dyspnea GI: Denies: abdominal pain, nausea, vomiting, hematemesis, diarrhea or constipation : Denies: dysuria Neuro: Denies: headache(s), numbness in extremities, weakness in extremities, dizziness or vertigo Endo: Denies: polyuria or polydipsia Medications/Allergies Home Medications Medication Instructions Recorded Confirmed Last Taken Type allopurinol 300 mg tablet 300 mg PO DAILY 07/16/19 12/16/21 11/07/19 History aspirin 81 mg tablet,delayed 162 mg PO DAILY 07/16/19 12/16/21 11/07/19 History release (Aspir-) benazepril 40 mg tablet 40 mg PO DAILY 07/16/19 12/16/21 11/07/19 History hydrochlorothiazide 25 mg tablet 25 mg PO DAILY 07/16/19 12/16/21 11/07/19 History metformin 1,000 mg tablet 1,000 mg PO BID 07/16/19 12/16/21 11/07/19 20:00 History hydrocodone 5 mg-acetaminophen 325 1 tab PO Q6H PRN pain #10 tabs 11/06/19 12/16/21 11/06/19 Rx mg tablet (Chrisman) atorvastatin 20 mg tablet 20 mg PO DAILY 11/07/19 12/16/21 11/07/19 History fenofibrate 160 mg tablet 160 mg PO DAILY 11/07/19 12/16/21 11/07/19 History latanoprost 0.005 % eye drops 1 drp ophthalmic (eye) DAILY 11/07/19 12/16/21 11/07/19 History multivitamin (Multiple Vitamins) 1 tab PO DAILY 11/07/19 12/16/21 11/07/19 History nitroglycerin 0.4 mg sublingual 4 mg sublingual PRN PRN Chest Pain 11/07/19 12/16/21 Unknown History tablet amlodipine 5 mg tablet See Rx Instructions .Route 11/08/19 12/16/21 Unknown Rx .COMPLEX #30 tabs metoprolol tartrate 25 mg tablet 25 mg PO BID 11/08/19 12/16/21 11/08/19 06:00 History doxycycline hyclate 100 mg tablet 100 mg PO BID 14 days #28 tabs 12/16/21 12/16/21 Unknown Rx Allergies Allergy/AdvReac Type Severity Reaction Status Date / Time amoxicillin Allergy Unknown ALGY-Rash Verified 12/16/21 10:39 PFSH Acute PFSH: Medical History (Updated 02/03/22 @ 20:25 by Min Rocha MD) Diverticulosis Hyperlipidemia Hypertension Non-insulin dependent type 2 diabetes mellitus Umbilical hernia, incarcerated Surgical History History of appendectomy History of umbilical hernia repair S/P tonsillectomy Status post colonoscopy (~2013) Family History Grandmother Hypertension Diabetes Denies family history of CAD (coronary artery disease) Social History Smoking and tobacco status: never smoked Alcohol intake: never History of recent travel: No Vitals/I&O/Wt Last Vital Signs Temp 98.8 F 02/03/22 16:18 Pulse 62 02/03/22 19:30 Resp 15 02/03/22 19:30 BP 191/95 02/03/22 19:30 Pulse Ox 99 02/03/22 19:30 O2 Del Method 02/03/22 18:30 Weight last 48 hrs Weight 94.347 kg Physical Exam Const: COMMON NORMALS: no acute distress and patient oriented x3 HENMT: COMMON NORMALS: normocephalic HEAD & SCALP: normocephalic Eye: COMMON NORMALS: Equal, round and reactive pupils present and EOMs intact bilaterally Resp: COMMON NORMALS: normal respiratory effort, No retractions, No use of accessory muscles and clear to auscultation bilaterally AUSCULTATION: clear to auscultation bilaterally Cardio: COMMON NORMALS: no JVD, regular rate, regular rhythm, S1 normal heart sound present and S2 normal heart sound present RATE: regular rate RHYTHM: regular rhythm HEART SOUNDS: S1 normal heart sound present and S2 normal heart sound present GI: COMMON NORMALS: Normal to inspection, nondistended, normoactive bowel sounds present, Soft to palpation, non-tender, No hepatosplenomegaly present, no masses and no bruits PALPATION: Yes Soft to palpation and Yes No hepatosplenomegaly present Extremity: COMMON NORMALS: capillary refill normal, no clubbing, cyanosis or edema, no calf tenderness and no pedal edema Neuro: COMMON NORMALS: patient oriented x3, CN's II-XII intact bilaterally, moves all extremities and no focal motor deficits Psych: COMMON NORMALS: mental status grossly normal Data : 02/03/22 16:30 02/03/22 16:30 A&P Assessment and plan (1) Chest pain: Status: Acute (2) Hypertension: Status: Acute (3) Hypertensive urgency: Status: Acute Plan Hypertension urgency -No current chest pain, no focal neurologic deficits, no paresthesias, -We will slowly reduce blood pressure -CT head, cardiac echo -Continue home medications benazepril, hydrochlorothiazide, Norvasc increased to 10 mg once daily, metoprolol 50 twice daily, hydralazine added Chest pain -Potentially related to hypertension -Cardiac echo ordered -Prior stress testing showed -1.? Myocardial visually revealing a small area of inconsistent reversible ?defect in the mid inferior wall region, may suggest ischemia in the ?distribution of the right coronary artery.? However the positive predictive ?value this finding is limited. ?2.? Normal ejection fraction 61%. ?3.? LV wall motion analysis revealing no gross wall motion normalities. ?4.? LV volume, upper limit of normal -Serial EKGs, serial troponins, telemetry monitoring -Monitor for chest pain -Repeat stress testing in a.m., n.p.o. midnight Hyperlipidemia, as above Zam-nkcdeyl-gmqcwnflw type 2 diabetes mellitus, low-dose sliding scale with A1c Attestations Medical Necessity Statement*: Patient requires hospitalization for chest pain, hypertensive urgency Coding Level of Care Code Acute Financial Systems Director for [facility] Fwd Diagnoses Chest pain R07.9 Hypertension I10 Hypertensive urgency I16.0
--- NOTE | 2022-02-03 20:34 | ECG_ITS ---
[facility] Test Date: 2022-02-04 Pat Name: Toan Bejarano Department: Room: 278 Gender: Male Hide Dropper: : 1950 Requested By: Min Rocha Order Number: [id number] Rakan MD: Gaby Lundberg M.D. Interpretive Statements NAME OF STUDY: LEXISCAN SESTAMIBI STRESS TEST INDICATION: Chest Pain PROCEDURE: At the baseline, the blood pressure was 161/94 mm Hg with a heart rate of 54 bpm. The electrocardiogram showed sinus bradycardia, normal axis with nonspecific T wave changes. The Lexiscan was infused over a period of 20 seconds. A total of 0.4 milligrams of Lexiscan was infused. The stress phase was continued for a total of 5 minutes. Heart rate at the end of the stress phase was 66 bpm with a blood pressure of 210/90 mmHg. The EKG at the peak infusion revealed sinus rhythm with no significant ST-T wave changes. The study was terminated due to protocol completion. Sestamibi was injected 20 seconds after the Lexiscan infusion. Blood pressure at the end of the recovery phase was 172/84 mmHg with a heart rate of 67 beats per minute. CONCLUSION: 1. No significant EKG changes with the LexiScan infusion. 2. No LexiScan induced chest pain or cardiac arrhythmia. 3. Baseline hypertension with normal blood pressure and heart rate response. 4. Sestamibi/sestamibi perfusion scan pending; see separate report. Electronically Signed On 02-10-2022 16:40:41 CDT by Gaby Lundberg M.D. [id number]
[2022-02-03 21:13] LABS: Magnesium 1.6 mg/dL (1.7-2.3); NT Pro B Type Natriuretic Pept 267 pg/mL (0-125)
[2022-02-03 21:34] LABS: Glucose Point of Care 143 mg/dL (70-110)
[2022-02-03] MEDS: metoprolol tartrate 25 mg Tablet 50 MG PO (21:54)
[2022-02-03] MEDS: hyDRALAzine 10 mg Tablet PO (21:54)
[2022-02-03] MEDS: enoxaparin 40 mg/0.4 mL Syringe SUBCUT (21:55)
[2022-02-03 22:15] LABS: Troponin 5 6HR 15.45 ng/L (0-15)
[2022-02-03 22:16] LABS: Troponin 5 6HR Delta 0.45 ng/L (0-12)
--- NOTE | 2022-02-03 22:24 | ECG_ITS ---
[facility] Test Date: 2022-02-03 Pat Name: Toan Bejarano Department: Room: 278 Gender: Male License And Permit Specialist: : 1950 Requested By: Osvaldo Farley Order Number: [id number] Rakan MD: Gaby Lundberg M.D. Measurements Intervals [place] Rate: 50 P: 56 [place]: 207 QRS: 53 QRSD: 112 T: -9 QT: 434 QTc: 399 Interpretive Statements SINUS BRADYCARDIA INCOMPLETE RIGHT BUNDLE BRANCH BLOCK [90+ ms QRS DURATION, TERMINAL R IN V1/V2, 40+ ms S IN I/aVL/V4/V5/V6] POSSIBLE LEFT VENTRICULAR HYPERTROPHY [VOLTAGE CRITERIA PLUS LAE OR QRS WIDENING] NONSPECIFIC T-WAVE ABNORMALITY Compared to ECG 02/03/2022 18:25:00 Incomplete right bundle-branch block now present T-wave abnormality still present Electronically Signed On 02-05-2022 19:10:07 CDT by Gaby Lundberg M.D. [id number]
[2022-02-03] MEDS: magnesium sulfate premix 4 GM/100 ML PREMIX IV (23:36)
[2022-02-04] VITALS (7 sets, daily range): BP systolic 157–191; BP diastolic 72–84; PULSE 47–67; RESP 16–18; TEMP 36.4–36.8; O2SAT 96–99
[2022-02-04 06:19] LABS: Basophils # 0.1 10^3/uL (0.0-0.1); Basophils % 0.7 %; Eosinophils # 0.2 10^3/uL (0.0-0.8); Eosinophils % 2.1 %; Hematocrit 46.1 % (42.0-52.0); Hemoglobin 15.1 g/dL (11.7-16.6); Lymphocytes # 1.5 10^3/uL (0.8-4.8); Lymphocytes % 18.1 %; Mean Corpuscular HGB Conc 32.8 g/dL (30.0-36.0); Mean Corpuscular Volume 88.7 fl (80-94); Mean Platelet Volume 11.1 fL (7.4-10.4); Monocytes # 0.5 10^3/uL (0.2-0.9); Neutrophils # 5.85 10^3/uL (1.8-7.7); Neutrophils % 72.7 %; Nucleated Red Blood Cells % 0 %; Platelet Count 202 10^3/cmm (130-400); Red Cell Distribution Width 14.3 % (12.1-15.1); White Blood Count 8.1 10^3/uL (4.0-10.0)
[2022-02-04 06:28] LABS: Estmated Average Glucose 128; Hemoglobin A1C 6.1 % (4.0-6.0)
[2022-02-04 06:32] LABS: Glucose Point of Care 136 mg/dL (70-110)
[2022-02-04 06:50] LABS: Alanine Aminotransferase 14 U/L (0-41); Albumin Level 4.1 g/dL (3.5-5.2); Alkaline Phosphatase 49 IU/L (40-130); Anion Gap 12.9 (5-19); Aspartate Amino Transferase 17 U/L (0-40); Blood Urea Nitrogen 14 mg/dL (8-23); Calcium 8.5 mg/dL (8.5-10.5); Carbon Dioxide 29 mmol/L (22-29); Chloride 105 mmol/L (98-107); Chol HDL Ratio 4.83 mg/dL (1.0-5.00); Cholesterol 145 mg/dL (0-200); Globulin 2.2 g/dL (1.3-4.6); Glomerular Filtration Rate 83.4 mL/min (90-130); Glucose 153 mg/dL (65-115); HDL Cholesterol 30 mg/dL (60-100); LDL Cholesterol Calculated 58 mg/dL (50-129); LDL HDL Ratio 1.93 RATIO (0.00-3.22); NT Pro B Type Natriuretic Pept 232 pg/mL (0-125); Osmolality Calculated 300 mOsm/kg (285-295); Phosphorus 2.9 mg/dL (2.5-4.5); Potassium 3.9 mmol/L (3.5-5.1); Sodium 143 mmol/L (136-145); Total Bilirubin 0.9 mg/dL (0.15-1.2); Total Protein 6.3 g/dL (6.6-8.7); Triglycerides 285 mg/dL (0-150)
[2022-02-04] MEDS: regadenoson 0.4 Mg/5 ml Syringe IVP (07:52)
[2022-02-04] MEDS: hydroCHLOROthiazide 25 mg Tablet PO (09:13)
[2022-02-04] MEDS: lisinopril 20 mg Tablet 40 MG PO (09:13)
[2022-02-04] MEDS: atorvastatin 40 mg Tablet 20 MG PO (09:13)
[2022-02-04] MEDS: allopurinol 300 mg Tablet PO (09:13)
[2022-02-04] MEDS: amlodipine 5 mg Tablet 10 MG PO (09:14)
[2022-02-04] MEDS: aspirin 81 mg EC Tablet 162 MG PO (09:14)
[2022-02-04] MEDS: pantoprazole DR 40 mg Tablet PO (09:14)
[2022-02-04] MEDS: metoprolol tartrate 25 mg Tablet 50 MG PO (09:14)
[2022-02-04] MEDS: hyDRALAzine 10 mg Tablet PO (09:18)
--- NOTE | 2022-02-04 11:42 | PC.CHAP ---
Pastoral Care Encounter/Spiritual Assessment Type of Contact [] Declined middleware solutions architect visit [] Patient/Family/Request visit [] Outpatient visit [] Follow-up visit [] Physician referral [] Code/Alert [x] Routine visit [] Staff referral [] Actively dying [] Patient sleeping [] Family support [] [] Out of room [] Palliative care [] [] Receiving care in room [] Pre-surgical visit [] Trauma [] Long length of stay [] ICU visit [] Other: Relational/Emotional Strength [x] Patient feels connected with others/family/visitors/staff [] Distress [] Loneliness/isolation [] Abandonment Spirituality of Patient [x] Person of Matilde [] Attends Nondenominational of their Matilde [x] Believes in Prayer [] Reads Bible or Restorationist materials [] There are Spiritual issues to be addressed Care Consultant Interventions [x] Prayer [x] Active listening x[x] Non-anxious presence [] Spiritual/emotional support [] Crisis/trauma care [] Spiritual counseling [] Bereavement support [] Provided bereavement packet [] Provided Bible/devotional materials [] Provided toy/stuffed animal, coloring book to patient or family member [] Provided Communion [] Anointing/Bapchule [] Salvation [x] Completed spiritual assessment [] Other: Impact on Illness or Injury [] Angry [] Fearful [] Anxious [] Often cries [] Exhaustion [] Unable to work [] Unable to attend protestant [] Unable to walk/stand [] Unable to read [] Unable to drive [] Unable to eat/drink [] Unable to sleep [] Unable to be with family [] Patient intubated [] Other: Summary Time spent with patient 10 min
[2022-02-04 11:50] LABS: Glucose Point of Care 194 mg/dL (70-110)
[2022-02-04] MEDS: insulin lispro 100 unit/1 mL SUBCUT (12:15)
--- NOTE | 2022-02-04 14:45 | PM.DCS ---
Discharge Providers Date of Admission: 02/03/22 19:47 Date of Discharge: February 04, 2022 Attending Provider at Admission: Min Rocha MD Attending Provider at Discharge: Babak Romero MD Primary Care Provider: Bladimir Ridley Diagnoses at Discharge Discharge Diagnosis (1) Chest pain: Status: Acute (2) Hypertension: Status: Acute (3) Hypertensive urgency: Status: Acute Reason for Visit Reason for Visit: high BP Brief History: History as per HPI: Toan Bejarano is a 71 year old male with a past medical history of hypertension, hyperlipidemia, obesity, [id number] type 2 diabetes mellitus who presents [facility] due to not feeling well, fatigue, malaise, chest pain, and elevated blood pressures.? Patient tells me that he has been feeling well, his blood sugars have been running high, he talk to his primary care who told him to come to the emergency room.? He also has been having intermittent substernal chest pain, no diaphoresis, no shortness of breath, no lightheadedness, dizziness, no paresthesias, no facial droop no slurring of his words. Hospital Course Hospital Course Patient was admitted to the hospital for further evaluation and management. On admission he was found to have high blood pressure and in hypertensive urgency for which his antihypertensives were adjusted. He had blood pressures responded well. For concerns of ischemia he underwent Lexiscan stress test which ruled out any acute abnormality. He has been discharged in hemodynamically stable condition on adjusted antihypertensives. Patient is not to take metoprolol and hydrochlorothiazide anymore. Has been changed to carvedilol 12.5 mg twice daily and chlorthalidone 25 mg daily. He is to continue taking his Benzapril. He is to check his blood pressure daily at home and maintain a blood pressure diary and amlodipine as before and follow-up with his primary care provider in 2 weeks for further adjustment of antihypertensives if needed. Physical Exam Narrative: EXAM NARRATIVE: General: No acute distress, AO x3, HEENT: PERRLA, pupils bilaterally equal and reactive Chest: Normal vesicular breath sounds, bilateral equal air entry CVS: S1-S2 regular, no murmurs, no tachycardia, no gallops, no rubs Abdomen: Soft, nontender, no organomegaly, bowel sounds present, morbidly obese Neuro: No focal deficits, no facial deformity, AO x3, power 5/5 in all limbs Discharge Data Studies Completed and Pending Completed Studies During Hospitalization Category Date Time Status CT head wo con* [id number] Stat Cat Scan 02/03/22 20:20 Completed Sestamibi Stress Test Request Routine Exams 02/03/22 20:34 Draft XR chest 1V portable [id number] Stat Exams 02/03/22 16:24 Completed NM ivette perf SPECT r/s* [id number] Routine Nuc Med 02/04/22 20:34 Completed Pending at discharge Category Date Time Status Complete Blood Count w/Auto AM LABS Lab 02/05/22 04:00 Ordered Complete Blood Count w/Auto AM LABS Lab 02/06/22 04:00 Ordered Comprehensive Metabolic Panel AM LABS Lab 02/05/22 04:00 Ordered Comprehensive Metabolic Panel AM LABS Lab 02/06/22 04:00 Ordered Phosphorus AM LABS Lab 02/05/22 04:00 Ordered Phosphorus AM LABS Lab 02/06/22 04:00 Ordered CV. echo complete* [id number] Stat Ultrasound 02/04/22 20:20 Taken Radiology Impressions Chest X-Ray 02/03/22 16:24 IMPRESSION: Cardiomegaly, lungs are clear. Head CT 02/03/22 20:20 IMPRESSION: No acute intracranial abnormality. Lexiscan stress test: PERFUSION FINDINGS ?Small size perfusion abnormality of mild severity of mid inferolateral, apical?lateral and apical inferior wall on rest images with improved tracer uptake on?stress images.? This is suggestive of attenuation artifact. ?FUNCTIONAL RESULTS ? ? (calculated via Gated SPECT) ? Stress Image LV EF (%):? ? 69 ? Stress EDV (mL):156? TID:? 1.03 ? Stress ESV (mL):49 ?FUNCTIONAL FINDINGS: ?The left ventricle is normal in size. Transient Ischemia Dilatation of 1. ?There is normal left ventricular systolic function. ?The left ventricular ejection fraction is normal with a value of 69%. ?There is normal left ventricular wall thickening. ?IMPRESSIONS ?1. Myocardial perfusion imaging is normal.? Attenuation artifact noted in mid?to apical inferolateral and apical inferior suarez. ?2. Overall left ventricular systolic function is normal without regional wall?motion abnormalities, LVEF=69%. ?3.? EKG portion of the study will be reported separately. ?Gaby Lundberg MD ?(Electronically Signed) ?Final Date:? ? ? 04 February 2022 ? 14:41 Laboratory Results WBC 8.1 10^3/uL (4.0-10.0) 02/04/22 06:02 RBC 5.20 10^6/uL (4.1-5.3) 02/04/22 06:02 Hgb 15.1 g/dL (11.7-16.6) 02/04/22 06:02 Hct 46.1 % (42.0-52.0) 02/04/22 06:02 MCV 88.7 fl (80-94) 02/04/22 06:02 MCH 29.0 pg (28.0-34.0) 02/04/22 06:02 MCHC 32.8 g/dL (30.0-36.0) 02/04/22 06:02 RDW 14.3 % (12.1-15.1) 02/04/22 06:02 Plt Count 202 10^3/cmm (130-400) 02/04/22 06:02 MPV 11.1 fL (7.4-10.4) H 02/04/22 06:02 Neut % (Auto) 72.7 % 02/04/22 06:02 Lymph % (Auto) 18.1 % 02/04/22 06:02 Tripp % (Auto) 6.0 % 02/04/22 06:02 Eos % (Auto) 2.1 % 02/04/22 06:02 Baso % (Auto) 0.7 % 02/04/22 06:02 Neut # (Auto) 5.85 10^3/uL (1.8-7.7) 02/04/22 06:02 Lymph # (Auto) 1.5 10^3/uL (0.8-4.8) 02/04/22 06:02 Tripp # (Auto) 0.5 10^3/uL (0.2-0.9) 02/04/22 06:02 Eos # (Auto) 0.2 10^3/uL (0.0-0.8) 02/04/22 06:02 Baso # (Auto) 0.1 10^3/uL (0.0-0.1) 02/04/22 06:02 Nucleated RBC % (auto) 0 % 02/04/22 06:02 Nucleated RBCs # 0.0 /100WBC 02/04/22 06:02 Sodium 143 mmol/L (136-145) 02/04/22 06:02 Potassium 3.9 mmol/L (3.5-5.1) 02/04/22 06:02 Chloride 105 mmol/L (98-107) 02/04/22 06:02 Carbon Dioxide 29 mmol/L (22-29) 02/04/22 06:02 Anion Gap 12.9 (5-19) 02/04/22 06:02 BUN 14 mg/dL (8-23) 02/04/22 06:02 Creatinine 0.9 mg/dL (0.7-1.2) 02/04/22 06:02 GFR Calculation 83.4 mL/min (90-130) L 02/04/22 06:02 Glucose 153 mg/dL (65-115) H 02/04/22 06:02 POC Glucose 194 mg/dL (70-110) H 02/04/22 11:40 Estimat Average Glucose 128 02/04/22 06:02 Hemoglobin A1c 6.1 % (4.0-6.0) H 02/04/22 06:02 Calculated Osmolality 300 mOsm/kg (285-295) H 02/04/22 06:02 Calcium 8.5 mg/dL (8.5-10.5) 02/04/22 06:02 Phosphorus 2.9 mg/dL (2.5-4.5) 02/04/22 06:02 Magnesium 1.6 mg/dL (1.7-2.3) L 02/03/22 16:30 Total Bilirubin 0.9 mg/dL (0.15-1.2) 02/04/22 06:02 AST 17 U/L (0-40) 02/04/22 06:02 ALT 14 U/L (0-41) 02/04/22 06:02 Alkaline Phosphatase 49 IU/L (40-130) 02/04/22 06:02 Creatine Kinase 73 U/L (39-308) 02/03/22 16:30 Troponin T Baseline 15 ng/L (0-15) 02/03/22 16:30 Troponin T 120 Minute 14.76 ng/L (0-15) 02/03/22 18:25 Delta Troponin T -0.24 ABS# (0-10) L 02/03/22 18:25 Troponin T Hi Sens 6Hr 15.45 ng/L (0-15) H 02/03/22 21:47 Troponin T Hi Sens 6Hr Delta 0.45 ng/L (0-12) 02/03/22 21:47 NT-Pro-B Natriuret Pep 232 pg/mL (0-125) H 02/04/22 06:02 Total Protein 6.3 g/dL (6.6-8.7) L 02/04/22 06:02 Albumin 4.1 g/dL (3.5-5.2) 02/04/22 06:02 Globulin 2.2 g/dL (1.3-4.6) 02/04/22 06:02 Triglycerides 285 mg/dL (0-150) H 02/04/22 06:02 Cholesterol 145 mg/dL (0-200) 02/04/22 06:02 LDL Cholesterol, Calc 58 mg/dL (50-129) 02/04/22 06:02 HDL Cholesterol 30 mg/dL (60-100) L 02/04/22 06:02 LDL/HDL Ratio 1.93 RATIO (0.00-3.22) 02/04/22 06:02 Cholesterol/HDL Ratio 4.83 mg/dL (1.0-5.00) 02/04/22 06:02 TSH 1.80 uIU/mL (0.27-4.20) 02/04/22 06:02 Vitals Last Vital Signs Temp 98.2 F 02/04/22 13:51 Pulse 52 L 02/04/22 13:51 Resp 17 02/04/22 13:51 BP 165/72 02/04/22 13:51 Pulse Ox 96 02/04/22 13:51 O2 Del Method 02/04/22 11:28 Discharge Plan Discharge Patient Disposition: Home Condition: Stable Prescriptions: New carvedilol 12.5 mg Tablet 12.5 mg PO BID 30 Days Qty: 60 0RF chlorthalidone 25 mg Tablet 25 mg PO DAILY Qty: 30 0RF pantoprazole 40 mg Tablet,Delayed Release (Dr/Ec) 40 mg PO DAILY Qty: 30 0RF Continued hydrocodone-acetaminophen [Central] 5-325 mg tablet 1 tab PO Q6H PRN (Reason: pain) Qty: 10 0RF nitroglycerin 0.4 mg tablet, sublingual 4 mg sublingual PRN PRN (Reason: Chest Pain) fenofibrate 160 mg tablet 160 mg PO DAILY multivitamin [Multiple Vitamins] Tablet 1 tab PO DAILY latanoprost 0.005 % drops 1 drp ophthalmic (eye) BEDTIME metformin 1,000 mg tablet 1,000 mg PO BID allopurinol 300 mg tablet 300 mg PO DAILY benazepril 40 mg tablet 40 mg PO DAILY aspirin [Aspir-81] 81 mg Tablet,Delayed Release (Dr/Ec) 162 mg PO DAILY Changed atorvastatin 20 mg tablet 40 mg PO BEDTIME Qty: 60 0RF amlodipine 5 mg tablet 10 mg PO DAILY 30 Days Qty: 60 3RF Dose Instruction: TAKE 1 TABLET BY MOUTH DAILY Discontinued metoprolol tartrate 25 mg tablet 25 mg PO BID hydrochlorothiazide 25 mg tablet 25 mg PO DAILY Discharge Orders: Discharge Order (Routine); Ordered 02/04/22 Ordered By: Babak Romero Referrals: Sheba Baez PA-C [Referring] - 02/11/22 11:00 am (PHONE NUMBER [phone] [facility]) Discharge Diet: Advance as tolerated Discharge Activity: Resume usual activity and Increase activity as tolerated Patient Instructions: Chlorthalidone (By mouth), Carvedilol (By mouth), Chest Pain (DC), Opioid Safety Activity Restrictions/Additional Instructions: Do not take metoprolol and hydrochlorothiazide anymore. Instead take carvedilol 12.5 mg 2 times a day, chlorthalidone 25 mg daily. Repeat BMP with a primary care provider within next 2 week. Monitor blood blood pressure daily and maintain a blood pressure diary and follow-up with a primary care provider within next 2 weeks for further adjustment of antihypertensives. Your goal blood pressure is less than 140/90 mmHg. Discharge Attestations Time Spent in Discharge Care*: greater than 30 min Specific Discharge Activities: educating patient, discussing with pcp/other providers, discussing with mental health case manager/social workers/dc planners, documenting/other paperwork and evaluating patient/reviewing data Status at Discharge: Cognitive status at discharge: cognitively intact, Behavioral status at discharge: cooperative, Functional status at discharge: independent ambulation, Overall status at discharge: patient is back to baseline Quality Metrics Clinical Quality Measures [ No reported AMI, CVA or VTE this stay] Coding Level of Care Code Acute Chg FW DC note Diagnoses Chest pain R07.9 Hypertension I10 Hypertensive urgency I16.0
--- NOTE | 2022-02-04 20:20 | USCV_ITS ---
Toan Bejarano Age: 71 Gender: M : 1950 Exam Date: 02/04/2022 01:55 Ordering Phys: Min Rocha MD Technologist: WILLIE Exam Location: [facility] [place] Indication: chest pain. No history of cardiac intervention per patient. BP: 164 / 76 HR: 69 Rhythm: Sinus Technical Quality: Adequate MEASUREMENTS (Male / Female) Normal Values 2D ECHO LV Diastolic Diameter PLAX 4.6 cm 4.2 - 5.9 / 3.9 - 5.3 cm LV Systolic Diameter PLAX 2.9 cm IVS Diastolic Thickness 1.3 cm 0.6 - 1.0 / 0.6 - 0.9 cm IVS Systolic Thickness 2.3 cm LVPW Diastolic Thickness 1.4 cm 0.6 - 1.0 / 0.6 - 0.9 cm LVPW Systolic Thickness 1.9 cm LVOT Diameter 2.2 cm LV Ejection Fraction 2D Teich 67.5 % LV Ejection Fraction MOD 2C 62.7 % LV Ejection Fraction 2C AL 66.8 % LA Diameter 4.1 cm LA Width 3.9 cm LA Height 6.7 cm RA Width 3.4 cm RA Height 5.4 cm Aorta at Sinotubular Diameter 3.1 cm IVC Diameter 1.7 cm M-MODE Aortic Annulus Diameter 3.8 cm LA Ao Ratio MM 1.0 MV E Point Septal Separation 0.5 cm DOPPLER AV Peak Velocity 135.0 cm/s LVOT Peak Velocity 92.0 cm/s AV Area Cont Eq vti 3.0 cm squared AV Area Cont Eq pk 2.5 cm squared MV Area PHT 2.9 cm squared Mitral E to A Ratio 0.8 MV E' Velocity 39.5 cm/s Mitral E to MV E' Ratio 7.0 Mitral E to LV E' Lateral Ratio 6.2 Mitral E to LV E' Septal Ratio 8.1 TR Peak Velocity 201.7 cm/s TR Peak Gradient 16.3 mmHg TV Peak E Velocity 52.0 cm/s Right Atrial Pressure 5.0 mmHg Pulmonary Artery Systolic Pressu 21.3 mmHg PV Peak Velocity 129.0 cm/s RV Acceleration Time 0.1 s RV Ejection Time 0.4 s RV AcT/ET 0.2 FINDINGS Left Ventricle Normal left ventricular size, systolic function and wall thickness, with no regional wall motion abnormalities. Left ventricular ejection fraction is estimated at 60 %. Normal diastolic function. Right Ventricle Normal right ventricular size and systolic function. Right ventricular systolic pressure 21.3 mmHg. Right Atrium Normal right atrial size. Left Atrium Mildly increased left atrial size. Mitral Valve Structurally normal mitral valve. No mitral valve stenosis. No mitral valve regurgitation. Aortic Valve Structurally normal trileaflet aortic valve. No aortic valve stenosis. No aortic valve regurgitation. Tricuspid Valve Structurally normal tricuspid valve. No tricuspid valve stenosis. Trace to mild tricuspid valve regurgitation. Pulmonic Valve Structurally normal pulmonic valve. Pericardium No pericardial effusion. Aorta Normal size aortic root and proximal ascending aorta. IVC Normal IVC dimension with >50% respiratory change of the inferior vena cava. CONCLUSIONS 1. Normal left ventricular size, systolic function and wall thickness, with no regional wall motion abnormalities. Left ventricular ejection fraction is estimated at 60 %. Normal diastolic function. 2. Trace to mild tricuspid valve regurgitation. 3. Normal pulmonary artery pressure. 4. No prior similar studies to compare. Gaby Lundberg MD (Electronically Signed) Final Date: 05 February 2022 07:01 S
--- NOTE | 2022-02-04 20:34 | NMCV_ITS ---
NM ivette perf SPECT r/s* [id number] Toan Bejarano Age: 71 Gender: M : 1950 Exam Date: 02/04/2022 20:34 Ordering Phys: Min Rocha MD Technologist: MARINA Perez Exam Location: [facility] Indications: CHEST PAIN STRESS TEST [facility] IMAGE PROTOCOL Rest/Stress 1 Lexiscan Day Radiopharmaceutical Dose (mCi) Administration Site Administered by Rest: Tc-99m 10.7 IV MARINA Russell Sestamibi Stress:Tc-99m 32.9 IV MARINA Perez Sestamidaquan Rest: 04-Feb-2022 60 Discovery 630 Stress: 04-Feb-2022 30 Discovery 630 0.4mg Lexiscan. Images obtained in supine and prone position. SPECT RESULTS Technical Quality: Excellent Raw Data Analysis: Normal Image Corrections: No attenuation or motion correction applied Summed Stress Score: 0 Summed Rest Score: 4 Summed Difference Score: 0 PERFUSION FINDINGS Small size perfusion abnormality of mild severity of mid inferolateral, apical lateral and apical inferior wall on rest images with improved tracer uptake on stress images. This is suggestive of attenuation artifact. FUNCTIONAL RESULTS (calculated via Gated SPECT) Stress Image LV EF (%): 69 Stress EDV (mL):156 TID: 1.03 Stress ESV (mL):49 FUNCTIONAL FINDINGS: The left ventricle is normal in size. Transient Ischemia Dilatation of 1. There is normal left ventricular systolic function. The left ventricular ejection fraction is normal with a value of 69%. There is normal left ventricular wall thickening. IMPRESSIONS 1. Myocardial perfusion imaging is normal. Attenuation artifact noted in mid to apical inferolateral and apical inferior suarez. 2. Overall left ventricular systolic function is normal without regional wall motion abnormalities, LVEF=69%. 3. EKG portion of the study will be reported separately. Gaby Lundberg MD (Electronically Signed) Final Date: 04 February 2022 14:41 S
== END 2022-02-04 16:27 | disposition home or self-care (01) ==
LOC: ER 19:47 → MEDSURG 20:18
PROVIDERS: Family Medicine; Admitting Provider Family Medicine; Emergency Provider Emergency Medicine; PCP Physician Assistant Medical; Visit Provider Student in an Organized Health Care Education/Training Program
DX: I16.0 Hypertensive urgency (principal); R07.9 Chest pain, unspecified; I10 Essential (primary) hypertension; E78.5 Hyperlipidemia, unspecified; E66.9 Obesity, unspecified; Z68.30 Body mass index [BMI] 30.0-30.9, adult; E11.9 Type 2 diabetes mellitus without complications; Z79.82 Long term (current) use of aspirin
CPT/HCPCS: 36415; 36416; 70450; 71045; 78452; 80053; 80061; 82550; 82962; 83036; 83735; 83880; 84100; 84443; 84484; 85025; 93005; 93017; 93306; 96365; 96372; 96375; 99285; A9500; G0378; J0360; J1650; J1815; J2785; J3475

== ENCOUNTER 2023-10-20 11:45 | Outpatient (CLI) | payer MEDICARE, SELFPAY ==
--- NOTE | 2023-10-20 12:04 | CT_ITS ---
WS: [id number] CT ABDOMEN WITH AND WITHOUT CONTRAST HISTORY: OTHER SPECIFIED DISEASES OF LIVER Multiphase 3 mm imaging through the abdomen. Oral contrast has not been provided. Coronal and sagitta l reformats are submitted. All CT scans at [facility] use at least one of these dose optimiza tion techniques: automated exposure control; mA and/or kV adjustment per patient size (includes targe nicolette exams where dose is matched to clinical indication); or iterative reconstruction. IV CONTRAST: Omnipaque 350; 100 mL IV. Oral contrast: No DLP: 1833.19 mGy.cm COMPARISON: 11/24/2020, 11/06/2019 Lower thorax: Mild dependent changes LEFT lung base with granulomata. Heart is normal size. Small hia glory hernia. Liver/biliary system: Liver is normal size with decreased attenuation from hepatic steatosis. There a re 2 peripherally enhancing masses in the LEFT lobe of the liver. On the delayed imaging there is con tinued filling in of these masses. The largest mass measures 2.8 x 2.3 cm. These are both consistent with hemangiomas. These were present on 11/24/2020 also. There is an additional stable mass since 11/24 in the RIGHT lobe adjacent to the gallbladder fossa measuring 0.9 cm. No bile duct dilatation. Normal portal vein. Gallbladder: Normal. No gallstones or wall thickening. No pericholecystic fluid. Pancreas: Normal size pancreas and pancreatic duct. No adjacent inflammation. Spleen: Normal size spleen. No mass or infarct. Adrenal glands: Stable well-circumscribed RIGHT adrenal mass measuring 2.4 x 1.9 cm consistent with a n adenoma. LEFT adrenal gland is negative. Right kidney: Normal. Left kidney: Normal. Aorta: Mild atherosclerosis with no aneurysm. Lymphadenopathy: None. Free fluid: None. GI tract: Stomach is moderately distended with food products. No small bowel obstruction. Mild consti pation. Only the visualized GI tract within the abdomen can be evaluated on this abdomen CT only. Abdominal wall: Unremarkable abdominal wall. No hernia. Visualized osseous structures: Visualized lumbar spine is negative for acute process. Mild spondyliti c change. No destructive mass. IMPRESSION: 1. Cholelithiasis without acute cholecystitis. 2. Hepatic hemangiomas in the LEFT lobe of the liver. The largest measures 2.8 x 2.3 cm. There is an additional stable 0.9 cm mass in the RIGHT lobe of liver by the gallbladder which is probably a cyst . 3. No renal obstruction. 4. Marked distention of the stomach with food products. Correlate for possible gastroparesis. 5. Long-term stability RIGHT adrenal adenoma.
[2023-10-20 12:25] LABS: Blood Urea Nitrogen 11 mg/dL (8-23)
[2023-10-20] MEDS: iohexol 350 mg/mL 500 mL Btl (per mL) IV (12:34)
== END 2023-10-20 11:46 | disposition home or self-care (01) ==
LOC: RAD 11:46
PROVIDERS: Radiology Neuroradiology; PCP Physician Assistant; Visit Provider Physician Assistant
DX: K76.9 Liver disease, unspecified (principal); K80.20 Calculus of gallbladder without cholecystitis without obstruction
CPT/HCPCS: 74170; 82565; 84520; Q9967

== ENCOUNTER 2023-10-29 19:01 | Emergency (ER) | payer MEDICARE, SELFPAY ==
[2023-10-29 19:30] VITALS: BP 166/89; PULSE 78; RESP 16; TEMP 37.3; O2SAT 95; BMI 31.0
--- NOTE | 2023-10-29 21:08 | ED_ITS ---
Documented by User: Lisa Hendrickson MD 10/29/23 21:45 HPI - Abdominal Pain 2 General: Chief Complaint: Abdominal Pain Stated Complaint: Gallstone Moved Time Seen by Provider: 10/29/23 21:05 History of Present Illness: Patient started having left lower quadrant sharp abdominal pains. He said at first he thought it was his gallbladder because he was told he had gallstones but then he realized his gallbladder was on the right side and this pains in his left lower quadrant. He thinks he might have some kidney stones. He has a history of back issues and is having back surgery coming up pretty soon. No nausea or vomiting. No diarrhea. No fever. No dysuria. Review of Systems 2 Narrative: Constitutional symptoms: Negative except as documented in HPI. Skin symptoms: Negative except as documented in HPI. Eye symptoms: Negative except as documented in HPI. ENMT symptoms: Negative except as documented in HPI. Respiratory symptoms: Negative except as documented in HPI. Cardiovascular symptoms: Negative except as documented in HPI. Gastrointestinal symptoms: Negative except as documented in HPI. Genitourinary symptoms: Negative except as documented in HPI. Musculoskeletal symptoms: Negative except as documented in HPI. Neurologic symptoms: Negative except as documented in HPI. Psychiatric symptoms: Negative except as documented in HPI. Endocrine symptoms: Negative except as documented in HPI. PFSH ED 2 PFSH: Medical History (Updated 10/29/23 @ 22:36 by Oneil Hamilton DO) Hypertension Diverticulosis Umbilical hernia, incarcerated Non-insulin dependent type 2 diabetes mellitus Hyperlipidemia Hypertension Surgical History History of umbilical hernia repair S/P tonsillectomy Status post colonoscopy (~2013) History of appendectomy Family History Grandmother Hypertension Diabetes Denies family history of CAD (coronary artery disease) Social History Smoking and tobacco/nicotine status: never used tobacco/nicotine Alcohol intake: never Substance/Drug Use: never Physical Exam 2 Narrative: EXAM NARRATIVE: General: Alert, no acute distress. Skin: Warm, dry. Head: Normocephalic, atraumatic. Neck: Supple, trachea midline. Eye: Extraocular movements are intact. Ears, nose, mouth and throat: mucosa moist. Cardiovascular: Regular, Normal peripheral perfusion. Respiratory: Lungs are clear to auscultation, respirations are non-labored, breath sounds are equal, Symmetrical chest wall expansion. Gastrointestinal: Soft, currently no pain in his left lower quadrant. He says it is sharp and comes and goes, Non distended, Normal bowel sounds. Musculoskeletal: Normal ROM, no deformity. Neurological: Alert and oriented, No focal neurological deficit observed. Psychiatric: Cooperative, appropriate mood & affect. Course 2 Vital Signs: Vital signs: Vital Signs Temperature 99.1 F 10/29/23 19:30 Pulse Rate 75 10/29/23 22:48 Respiratory Rate 16 10/29/23 22:48 Blood Pressure 147/85 10/29/23 22:48 Pulse Oximetry 95 10/29/23 22:48 Oxygen Delivery Me thod Room Air 10/29/23 19:30 MDM - Abdominal Pain Medical Decision Making Medical decision making: Differential diagnosis including but not limited to and based on the above HPI, review of systems and physical exam: Urinary tract infection, kidney stones, diverticulitis, constipation Orders placed to evaluate differential diagnosis based on the above differential, HPI and physical exam Lab Review: Laboratory results were reviewed and interpreted by myself the emergency room physician. I reviewed the patient's medical record. Reexamination: Lab Data 10/29/23 21:36 10/29/23 21:36 Labs/Radiology: Radiology Impressions Abdomen/Pelvis CT 10/29/23 21:08 IMPRESSION: 1. Prominent fluid in the small bowel without dilation may reflect an enteritis. 2. Nodular prostate gland enlargement, please correlate clinically. 3. Small bilateral fat containing inguinal hernias without bowel or inflammation. 4. Bilateral L5 pars interarticularis defects with grade 1 anterolisthesis of L5 relative to S1 appears chronic. 5. Left iliac wing 15.5 mm sclerotic bony lesion and right iliac wing 9.7 mm sclerotic bony lesion, similar to prior exam, indeterminate, whole body nuclear medicine bone scan could further characterize these. 6. Coronary artery atherosclerotic calcifications. 7. Right adrenal 26 mm low-density nodule consistent with a benign adenoma. 8. Cholelithiasis. 9. Diverticulosis without diverticulitis. 10. Mild perinephric edema bilaterally likely reflecting renal insufficiency, please correlate for pyelonephritis. COMMENTS: Consistent with the [employer]'s Incidental Findings Committee white paper (J Am Tio Radiol 2017): For any incidental adrenal lesion greater than or equal to 1 cm but less than or equal to 4 cm classified in this report as benign, likely benign, or containing fat (including classification as an adenoma or myelolipoma), no follow-up imaging is recommended per consensus recommendations based on imaging criteria. Further lab evaluation could be pursued if warranted based on clinical findings. Laboratory Results WBC 6.83 10^3/uL (3.29-11.43) 10/29/23 21:36 RBC 4.99 10^6/uL (3.85-5.65) 10/29/23 21:36 Hgb 14.80 g/dL (11.27-16.99) 10/29/23 21:36 Hct 42.0 % (37-53) 10/29/23 21:36 MCV 84.2 fl (82-101) 10/29/23 21:36 MCH 29.7 pg (27-33) 10/29/23 21:36 MCHC 35.2 g/dL (30-55) 10/29/23 21:36 RDW 14.1 % (12.1-15.1) 10/29/23 21:36 Plt Count 192 10^3/cmm (157-399) 10/29/23 21:36 MPV 10.6 fL (7.4-10.4) H 10/29/23 21:36 Neut % (Auto) 61.9 % 10/29/23 21:36 Lymph % (Auto) 21.4 % 10/29/23 21:36 Will % (Auto) 11.1 % 10/29/23 21:36 Eos % (Auto) 4.2 % 10/29/23 21:36 Baso % (Auto) 1.0 % 10/29/23 21:36 Neut # (Auto) 4.22 10^3/uL (1.8-7.7) 10/29/23 21:36 Lymph # (Auto) 1.5 10^3/uL (0.8-4.8) 10/29/23 21:36 Will # (Auto) 0.8 10^3/uL (0.2-0.9) 10/29/23 21:36 Eos # (Auto) 0.3 10^3/uL (0.0-0.8) 10/29/23 21:36 Baso # (Auto) 0.1 10^3/uL (0.0-0.1) 10/29/23 21:36 Nucleated RBC % (auto) 0 % 10/29/23 21:36 Nucleated RBCs # 0.0 /100WBC 10/29/23 21:36 Sodium 136 mmol/L (136-145) 10/29/23 21:36 Potassium 3.3 mmol/L (3.5-5.1) L 10/29/23 21:36 Chloride 97 mmol/L (98-107) L 10/29/23 21:36 Carbon Dioxide 27 mmol/L (22-29) 10/29/23 21:36 Anion Gap 15.3 (5-19) 10/29/23 21:36 BUN 13 mg/dL (8-23) 10/29/23 21:36 Creatinine 0.9 mg/dL (0.7-1.2) 10/29/23 21:36 GFR Calculation Not Reportable 10/29/23 21:36 Glucose 161 mg/dL (65-115) H 10/29/23 21:36 Calculated Osmolality 286 mOsm/kg (285-295) 10/29/23 21:36 Calcium 10.1 mg/dL (8.5-10.5) 10/29/23 21:36 Total Bilirubin 1.0 mg/dL (0.15-1.2) 10/29/23 21:36 AST 20 U/L (0-40) 10/29/23 21:36 ALT 32 U/L (0-41) 10/29/23 21:36 Alkaline Phosphatase 52 U/L (40-130) 10/29/23 21:36 Total Protein 7.0 g/dL (6.6-8.7) 10/29/23 21:36 Albumin 4.4 g/dL (3.5-5.2) 10/29/23 21:36 Globulin 2.6 g/dL (1.3-4.6) 10/29/23 21:36 Urine Color Yellow (Yellow) 10/29/23 22:03 Urine Appearance Clear (CLEAR) 10/29/23 22:03 Urine pH 8 (5-7) H 10/29/23 22:03 Ur Specific [place] 1.005 (1.005-1.030) 10/29/23 22:03 Urine Protein Neg (Negative) 10/29/23 22:03 Urine Glucose (UA) Norm (Normal) 10/29/23 22:03 Urine Ketones Negative (Negative) 10/29/23 22:03 Urine Blood Neg (Negative) 10/29/23 22:03 Urine Nitrate Negative (Negative) 10/29/23 22:03 Urine Bilirubin Neg (Negative) 10/29/23 22:03 Prot Sulfosalicylic Acd Negative (Negative) 10/29/23 22:03 Urine Urobilinogen 4 mg/dL (Negative) H 10/29/23 22:03 Ur Leukocyte Esterase Negative (Negative) 10/29/23 22:03 Discharge Plan Discharge Patient Disposition: Home Clinical Impression: Enteritis Abdominal pain Qualifiers: Abdominal location: lower abdomen, unspecified Qualified Code(s): R10.30 - Lower abdominal pain, unspecified Condition: Stable Prescriptions: New ciprofloxacin HCl 500 mg tablet 500 mg PO Q12H Qty: 20 0RF No Action hydrocodone-acetaminophen [[place]] 5-325 mg tablet 1 tab PO Q6H PRN (Reason: pain) Qty: 10 0RF nitroglycerin 0.4 mg tablet, sublingual 4 mg sublingual PRN PRN (Reason: Chest Pain) fenofibrate 160 mg tablet 160 mg PO DAILY multivitamin [Multiple Vitamins] Tablet 1 tab PO DAILY latanoprost 0.005 % drops 1 drp ophthalmic (eye) BEDTIME metformin 1,000 mg tablet 1,000 mg PO BID allopurinol 300 mg tablet 300 mg PO DAILY benazepril 40 mg tablet 40 mg PO DAILY aspirin [Aspir-81] 81 mg Tablet,Delayed Release (Dr/Ec) 162 mg PO DAILY chlorthalidone 25 mg Tablet 25 mg PO DAILY Qty: 30 0RF pantoprazole 40 mg Tablet,Delayed Release (Dr/Ec) 40 mg PO DAILY Qty: 30 0RF atorvastatin 20 mg tablet 40 mg PO BEDTIME Qty: 60 0RF amlodipine 5 mg tablet 10 mg PO DAILY 30 Days Qty: 60 3RF Dose Instruction: TAKE 1 TABLET BY MOUTH DAILY Discharge Orders: Discharge ED (Routine); Ordered 10/29/23 Ordered By: Oneil Hamilton Patient Instructions: Abdominal Pain (ED), Enteritis (ED) Activity Restrictions/Additional Instructions: Your CT scan in the ER revealed you have a condition called enteritis which is irritation and possibly infection of your intestines. You will be prescribed antibiotics that should help resolve this issue. Please take all your medicine as prescribed. Please follow-up with your family practice doctor within the next 7 days for further evaluation and treatment. Coding Level of Care Code ED Loft Worker for Antonio Fwd Documented by User: Oneil Hamilton DO 10/29/23 23:13 HPI - Abdominal Pain 2 General: Chief Complaint: Abdominal Pain Stated Complaint: Gallstone Moved Time Seen by Provider: 10/29/23 21:05 [facility] ED 2 PFSH: Medical History (Updated 10/29/23 @ 22:36 by Oneil Hamilton DO) Hypertension Diverticulosis Umbilical hernia, incarcerated Non-insulin dependent type 2 diabetes mellitus Hyperlipidemia Hypertension Surgical History History of umbilical hernia repair S/P tonsillectomy Status post colonoscopy (~2013) History of appendectomy Family History Grandmother Hypertension Diabetes Denies family history of CAD (coronary artery disease) Social History Smoking and tobacco/nicotine status: never used tobacco/nicotine Alcohol intake: never Substance/Drug Use: never Course 2 Vital Signs: Vital signs: Vital Signs Temperature 99.1 F 10/29/23 19:30 Pulse Rate 75 10/29/23 22:48 Respiratory Rate 16 10/29/23 22:48 Blood Pressure 147/85 10/29/23 22:48 Pulse Oximetry 95 10/29/23 22:48 Oxygen Delivery Me thod Room Air 10/29/23 19:30 MDM - Abdominal Pain Medical Decision Making Medical decision making: Differential diagnosis including but not limited to and based on the above HPI, review of systems and physical exam: Urinary tract infection, kidney stones, diverticulitis, constipation Orders placed to evaluate differential diagnosis based on the above differential, HPI and physical exam Lab Review: Laboratory results were reviewed and interpreted by myself the emergency room physician. I reviewed the patient's medical record. Reexamination: Patient turned over to my care during shift change. Lab work was reviewed as well as CT scan. Shows patient may have some enteritis. Patient will be placed on Cipro and discharged home to follow-up with his PCP Lab Data 10/29/23 21:36 10/29/23 21:36 Labs/Radiology: Radiology Impressions Abdomen/Pelvis CT 10/29/23 21:08 IMPRESSION: 1. Prominent fluid in the small bowel without dilation may reflect an enteritis. 2. Nodular prostate gland enlargement, please correlate clinically. 3. Small bilateral fat containing inguinal hernias without bowel or inflammation. 4. Bilateral L5 pars interarticularis defects with grade 1 anterolisthesis of L5 relative to S1 appears chronic. 5. Left iliac wing 15.5 mm sclerotic bony lesion and right iliac wing 9.7 mm sclerotic bony lesion, similar to prior exam, indeterminate, whole body nuclear medicine bone scan could further characterize these. 6. Coronary artery atherosclerotic calcifications. 7. Right adrenal 26 mm low-density nodule consistent with a benign adenoma. 8. Cholelithiasis. 9. Diverticulosis without diverticulitis. 10. Mild perinephric edema bilaterally likely reflecting renal insufficiency, please correlate for pyelonephritis. COMMENTS: Consistent with the [employer]'s Incidental Findings Committee white paper (J Am Tio Radiol 2017): For any incidental adrenal lesion greater than or equal to 1 cm but less than or equal to 4 cm classified in this report as benign, likely benign, or containing fat (including classification as an adenoma or myelolipoma), no follow-up imaging is recommended per consensus recommendations based on imaging criteria. Further lab evaluation could be pursued if warranted based on clinical findings. Laboratory Results WBC 6.83 10^3/uL (3.29-11.43) 10/29/23 21:36 RBC 4.99 10^6/uL (3.85-5.65) 10/29/23 21:36 Hgb 14.80 g/dL (11.27-16.99) 10/29/23 21:36 Hct 42.0 % (37-53) 10/29/23 21:36 MCV 84.2 fl (82-101) 10/29/23 21:36 MCH 29.7 pg (27-33) 10/29/23 21:36 MCHC 35.2 g/dL (30-55) 10/29/23 21:36 RDW 14.1 % (12.1-15.1) 10/29/23 21:36 Plt Count 192 10^3/cmm (157-399) 10/29/23 21:36 MPV 10.6 fL (7.4-10.4) H 10/29/23 21:36 Neut % (Auto) 61.9 % 10/29/23 21:36 Lymph % (Auto) 21.4 % 10/29/23 21:36 Will % (Auto) 11.1 % 10/29/23 21:36 Eos % (Auto) 4.2 % 10/29/23 21:36 Baso % (Auto) 1.0 % 10/29/23 21:36 Neut # (Auto) 4.22 10^3/uL (1.8-7.7) 10/29/23 21:36 Lymph # (Auto) 1.5 10^3/uL (0.8-4.8) 10/29/23 21:36 Will # (Auto) 0.8 10^3/uL (0.2-0.9) 10/29/23 21:36 Eos # (Auto) 0.3 10^3/uL (0.0-0.8) 10/29/23 21:36 Baso # (Auto) 0.1 10^3/uL (0.0-0.1) 10/29/23 21:36 Nucleated RBC % (auto) 0 % 10/29/23 21:36 Nucleated RBCs # 0.0 /100WBC 10/29/23 21:36 Sodium 136 mmol/L (136-145) 10/29/23 21:36 Potassium 3.3 mmol/L (3.5-5.1) L 10/29/23 21:36 Chloride 97 mmol/L (98-107) L 10/29/23 21:36 Carbon Dioxide 27 mmol/L (22-29) 10/29/23 21:36 Anion Gap 15.3 (5-19) 10/29/23 21:36 BUN 13 mg/dL (8-23) 10/29/23 21:36 Creatinine 0.9 mg/dL (0.7-1.2) 10/29/23 21:36 GFR Calculation Not Reportable 10/29/23 21:36 Glucose 161 mg/dL (65-115) H 10/29/23 21:36 Calculated Osmolality 286 mOsm/kg (285-295) 10/29/23 21:36 Calcium 10.1 mg/dL (8.5-10.5) 10/29/23 21:36 Total Bilirubin 1.0 mg/dL (0.15-1.2) 10/29/23 21:36 AST 20 U/L (0-40) 10/29/23 21:36 ALT 32 U/L (0-41) 10/29/23 21:36 Alkaline Phosphatase 52 U/L (40-130) 10/29/23 21:36 Total Protein 7.0 g/dL (6.6-8.7) 10/29/23 21:36 Albumin 4.4 g/dL (3.5-5.2) 10/29/23 21:36 Globulin 2.6 g/dL (1.3-4.6) 10/29/23 21:36 Urine Color Yellow (Yellow) 10/29/23 22:03 Urine Appearance Clear (CLEAR) 10/29/23 22:03 Urine pH 8 (5-7) H 10/29/23 22:03 Ur Specific [place] 1.005 (1.005-1.030) 10/29/23 22:03 Urine Protein Neg (Negative) 10/29/23 22:03 Urine Glucose (UA) Norm (Normal) 10/29/23 22:03 Urine Ketones Negative (Negative) 10/29/23 22:03 Urine Blood Neg (Negative) 10/29/23 22:03 Urine Nitrate Negative (Negative) 10/29/23 22:03 Urine Bilirubin Neg (Negative) 10/29/23 22:03 Prot Sulfosalicylic Acd Negative (Negative) 10/29/23 22:03 Urine Urobilinogen 4 mg/dL (Negative) H 10/29/23 22:03 Ur Leukocyte Esterase Negative (Negative) 10/29/23 22:03 All radiology interpretation(s) finalized by discharge Discharge Plan Discharge Patient Disposition: Home Clinical Impression: Enteritis Abdominal pain Qualifiers: Abdominal location: lower abdomen, unspecified Qualified Code(s): R10.30 - Lower abdominal pain, unspecified Condition: Stable Prescriptions: New ciprofloxacin HCl 500 mg tablet 500 mg PO Q12H Qty: 20 0RF No Action hydrocodone-acetaminophen [[place]] 5-325 mg tablet 1 tab PO Q6H PRN (Reason: pain) Qty: 10 0RF nitroglycerin 0.4 mg tablet, sublingual 4 mg sublingual PRN PRN (Reason: Chest Pain) fenofibrate 160 mg tablet 160 mg PO DAILY multivitamin [Multiple Vitamins] Tablet 1 tab PO DAILY latanoprost 0.005 % drops 1 drp ophthalmic (eye) BEDTIME metformin 1,000 mg tablet 1,000 mg PO BID allopurinol 300 mg tablet 300 mg PO DAILY benazepril 40 mg tablet 40 mg PO DAILY aspirin [Aspir-81] 81 mg Tablet,Delayed Release (Dr/Ec) 162 mg PO DAILY chlorthalidone 25 mg Tablet 25 mg PO DAILY Qty: 30 0RF pantoprazole 40 mg Tablet,Delayed Release (Dr/Ec) 40 mg PO DAILY Qty: 30 0RF atorvastatin 20 mg tablet 40 mg PO BEDTIME Qty: 60 0RF amlodipine 5 mg tablet 10 mg PO DAILY 30 Days Qty: 60 3RF Dose Instruction: TAKE 1 TABLET BY MOUTH DAILY Discharge Orders: Discharge ED (Routine); Ordered 10/29/23 Ordered By: Oneil Hamilton Patient Instructions: Abdominal Pain (ED), Enteritis (ED) Activity Restrictions/Additional Instructions: Your CT scan in the ER revealed you have a condition called enteritis which is irritation and possibly infection of your intestines. You will be prescribed antibiotics that should help resolve this issue. Please take all your medicine as prescribed. Please follow-up with your family practice doctor within the next 7 days for further evaluation and treatment. Coding Level of Care Code ED Loft Worker for Antonio Dickinson
--- NOTE | 2023-10-29 21:08 | CTR_ITS ---
PROCEDURE INFORMATION: Exam: CT Abdomen And Pelvis Without Contrast Exam date and time: 10/29/2023 9:20 PM Age: 73 years old Clinical indication: Abdominal pain; Prior surgery; Surgery date: 6+ months; Surgery type: Hernia, appy TECHNIQUE: Imaging protocol: Computed tomography of the abdomen and pelvis without contrast. Radiation optimization: All CT scans at this facility use at least one of these dose optimization techniques: automated exposure control; mA and/or kV adjustment per patient size (includes targeted exams where dose is matched to clinical indication); or iterative reconstruction. COMPARISON: CT abdomen wo/w con [id number] 10/20/2023 12:27 PM RADIATION DOSE METRICS: Total DLP (mGy-cm): 689.5 FINDINGS: Coronary arteries: Coronary artery atherosclerotic calcifications. Liver: Normal. No mass. Gallbladder and bile ducts: Cholelithiasis. Pancreas: Normal. No ductal dilation. Spleen: Normal. No splenomegaly. Adrenal glands: Right adrenal 26 mm low-density nodule consistent with a benign adenoma. Kidneys and ureters: Mild perinephric edema bilaterally likely reflecting renal insufficiency, please correlate for pyelonephritis. Stomach and bowel: Prominent fluid in the small bowel without dilation may reflect an enteritis. Diverticulosis without diverticulitis. Appendix: No evidence of appendicitis. Intraperitoneal space: Unremarkable. No free air. No significant fluid collection. Vasculature: Unremarkable. No abdominal aortic aneurysm. Lymph nodes: Unremarkable. No enlarged lymph nodes. Urinary bladder: Unremarkable as visualized. Reproductive: Nodular prostate gland enlargement, please correlate clinically. Bones/joints: Bilateral L5 pars interarticularis defects with grade 1 anterolisthesis of L5 relative to S1 appears chronic. Left iliac wing 15.5 mm sclerotic bony lesion and right iliac wing 9.7 mm sclerotic bony lesion, similar to prior exam, indeterminate, whole body nuclear medicine bone scan could further characterize these. Soft tissues: Small bilateral fat containing inguinal hernias without bowel or inflammation. CT/CT abdomen pelvis wo con [id number] IMPRESSION: 1. Prominent fluid in the small bowel without dilation may reflect an enteritis. 2. Nodular prostate gland enlargement, please correlate clinically. 3. Small bilateral fat containing inguinal hernias without bowel or inflammation. 4. Bilateral L5 pars interarticularis defects with grade 1 anterolisthesis of L5 relative to S1 appears chronic. 5. Left iliac wing 15.5 mm sclerotic bony lesion and right iliac wing 9.7 mm sclerotic bony lesion, similar to prior exam, indeterminate, whole body nuclear medicine bone scan could further characterize these. 6. Coronary artery atherosclerotic calcifications. 7. Right adrenal 26 mm low-density nodule consistent with a benign adenoma. 8. Cholelithiasis. 9. Diverticulosis without diverticulitis. 10. Mild perinephric edema bilaterally likely reflecting renal insufficiency, please correlate for pyelonephritis. COMMENTS: Consistent with the [employer]'s Incidental Findings Committee white paper (J Am Tio Radiol 2017): For any incidental adrenal lesion greater than or equal to 1 cm but less than or equal to 4 cm classified in this report as benign, likely benign, or containing fat (including classification as an adenoma or myelolipoma), no follow-up imaging is recommended per consensus recommendations based on imaging criteria. Further lab evaluation could be pursued if warranted based on clinical findings.
[2023-10-29 21:46] LABS: Basophils # 0.1 10^3/uL (0.0-0.1); Eosinophils # 0.3 10^3/uL (0.0-0.8); Eosinophils % 4.2 %; Lymphocytes # 1.5 10^3/uL (0.8-4.8); Lymphocytes % 21.4 %; Mean Corpuscular HGB Conc 35.2 g/dL (30-55); Mean Corpuscular Hemoglobin 29.7 pg (27-33); Mean Corpuscular Volume 84.2 fl (82-101); Mean Platelet Volume 10.6 fL (7.4-10.4); Monocytes # 0.8 10^3/uL (0.2-0.9); Monocytes % 11.1 %; Neutrophils # 4.22 10^3/uL (1.8-7.7); Neutrophils % 61.9 %; Nucleated Red Blood Cells % 0 %; Platelet Count 192 10^3/cmm (157-399); Red Blood Count 4.99 10^6/uL (3.85-5.65); Red Cell Distribution Width 14.1 % (12.1-15.1); White Blood Count 6.83 10^3/uL (3.29-11.43)
[2023-10-29 22:07] LABS: Alanine Aminotransferase 32 U/L (0-41); Albumin Level 4.4 g/dL (3.5-5.2); Alkaline Phosphatase 52 U/L (40-130); Anion Gap 15.3 (5-19); Aspartate Amino Transferase 20 U/L (0-40); Blood Urea Nitrogen 13 mg/dL (8-23); Calcium 10.1 mg/dL (8.5-10.5); Carbon Dioxide 27 mmol/L (22-29); Chloride 97 mmol/L (98-107); Globulin 2.6 g/dL (1.3-4.6); Glucose 161 mg/dL (65-115); Osmolality Calculated 286 mOsm/kg (285-295); Potassium 3.3 mmol/L (3.5-5.1); Sodium 136 mmol/L (136-145)
[2023-10-29 22:08] LABS: Add Urine Microscopic? NO; Charge for UA Resulting for Rev
[2023-10-29 22:13] LABS: Specific Gravity, Urine 1.005 (1.005-1.030); Urine Appearance Clear (CLEAR); Urine Color Yellow (Yellow); pH Urine 8 (5-7)
[2023-10-29 22:14] LABS: Bilirubin Urine Neg (Negative); Blood Urine Neg (Negative); Glucose Urine UA Norm (Normal); Ketones Urine Negative (Negative); Leukocyte Esterase Urine Negative (Negative); Nitrate Urine Negative (Negative); Protein Urine Neg (Negative); Sulfosalicylic Acid Urine Negative (Negative); Urobilinogen Urine 4 mg/dL (Negative)
[2023-10-29] MEDS: ciprofloxacin 500 mg Tablet PO (22:45)
[2023-10-29 22:48] VITALS: BP 147/85; PULSE 75; RESP 16; O2SAT 95
== END 2023-10-29 22:50 | disposition home or self-care (01) ==
PROVIDERS: Emergency Medicine; Emergency Provider Emergency Medicine
DX: K52.9 Noninfective gastroenteritis and colitis, unspecified (principal); R10.30 Lower abdominal pain, unspecified; Z79.82 Long term (current) use of aspirin; Z79.84 Long term (current) use of oral hypoglycemic drugs; I10 Essential (primary) hypertension; E11.9 Type 2 diabetes mellitus without complications; E78.5 Hyperlipidemia, unspecified
CPT/HCPCS: 36415; 74176; 80053; 81003; 85025; 99284

== ENCOUNTER 2024-01-14 09:37 | Emergency (ER) | payer MEDICARE, SELFPAY ==
[2024-01-14 09:39] VITALS: BP 165/84; PULSE 64; RESP 18; TEMP 36.4; O2SAT 95; BMI 30.7
[2024-01-14 09:57] VITALS: BP 156/77; BP 160/81; BP 177/94; PULSE 65; PULSE 74; PULSE 75
--- NOTE | 2024-01-14 09:57 | ECG_ITS ---
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 Measurements Intervals [place] Rate: 61 P: 26 CO: 172 QRS: 29 QRSD: 110 T: 14 QT: 410 QTc: 413 Interpretive Statements SINUS RHYTHM NONSPECIFIC T-WAVE ABNORMALITY Compared to ECG 02/03/2022 23:50:08 Sinus bradycardia no longer present Incomplete right bundle-branch block no longer present T-wave abnormality still present Electronically Signed On 01-14-2024 15:34:06 CDT by Jerson Watters M.D. [id number]
--- NOTE | 2024-01-14 09:58 | XR_ITS ---
WS: [id number] Chest, portable, 01/14/2024 Clinical data: dizziness Comparison: Chest, 02/03/2022 Findings: No nodules, masses or effusions are seen. The heart is normal. No pneumonia or pneumothorax is prese nt. The pulmonary vascularity is not increased. The aortic arch shows mild tortuosity. XR/XR chest 1V portable [id number] Impression: Atherosclerosis
--- NOTE | 2024-01-14 10:13 | ED_ITS ---
Documented by User: [email or web address] Zapien 01/14/24 16:35 HPI - Weakness 2 General: Chief complaint: Weakness Stated complaint: dizziness, blurred vision Time Seen by Provider: 01/14/24 09:48 Source: patient Mode of arrival: EMS Limitations: no limitations History of Present Illness: Patient is a 73 y/o male with history of HTN, HLD, and DM who presents to the ED via EMS due to acute onset dizziness at 0600 this morning. Patient states that he got out of bed when he had the sudden onset of room-spinning dizziness. This was also accompanied by blurred vision and generalized weakness. The dizziness and blurred vision has since resolved, however he still feels weak in the legs. He has never had this happen before. He states he recently had labs done with primary care which were all baseline, however has not had any recent cardiac workup including stress test or echo. He denies any frequent falls or feeling like he is going to pass out. He further denies any chest pain or shortness of breath. No hx of heart attacks or strkes. He does not that since he had his chlorthalidone dose doubled, he has been urinating more and sometimes gets weak like he is feeling now, and thinks he is dehydrated. No other recent medication changes to report. No other pertinent symptoms or concerning historical factors to note at this time. MD Complaint: generalized weakness Onset (ago): hour(s) Duration: improved Relieving factors: none Exacerbating factors: none Associated symptoms: Denies chest pain, chills, dysuria, fever(s), headache(s), nausea or vomiting Review of Systems 2 General: Reports: 10 or more systems reviewed and unremarkable except in HPI and below Const: Denies: fever(s), chills or fatigue Eyes: Reports: blurry vision ENMT: Denies: throat pain, ear or mastoid pain or nasal discharge Card: Denies: chest pain, palpitations, swelling of feet/ankles or lightheadedness Resp: Denies: dyspnea, productive cough or wheezing GI: Denies: abdominal pain, nausea, vomiting, diarrhea or constipation : Denies: flank pain, difficulty urinating, dysuria or urinary frequency Musc: Denies: neck pain, back pain or joint pain Skin/Breast: Denies: rash Neuro: Reports: weakness in extremities and dizziness; Denies: headache(s) or numbness in extremities PFSH ED 2 PFSH: Medical History (Updated 01/14/24 @ 12:14 by RAYMUNDO Zapien) Hypertension Diverticulosis Umbilical hernia, incarcerated Non-insulin dependent type 2 diabetes mellitus Hyperlipidemia Hypertension Surgical History History of umbilical hernia repair S/P tonsillectomy Status post colonoscopy (~2013) History of appendectomy Family History Grandmother Hypertension Diabetes Denies family history of CAD (coronary artery disease) Social History Smoking and tobacco/nicotine status: never used tobacco/nicotine Alcohol intake: never Substance/Drug Use: never Physical Exam 2 Const: COMMON NORMALS: no acute distress, patient oriented x3 and no limitations GENERAL APPEARANCE: cooperative, comfortable and well developed ORIENTATION/CONSCIOUSNESS: Yes awake, Yes oriented to person, Yes oriented to place and Yes oriented to time HENMT: COMMON NORMALS: normocephalic, atraumatic and hearing grossly normal bilaterally HEAD & SCALP: normocephalic and atraumatic Eye: COMMON NORMALS: Equal, round and reactive pupils present, EOMs intact bilaterally and conjunctivae normal CONJUNCTIVA: Yes conjunctivae normal P UPIL: Yes Equal, round and reactive pupils present Neck/C-Spine: COMMON NORMALS: full ROM, supple and no JVD Resp: COMMON NORMALS: normal respiratory effort, No retractions, No use of accessory muscles and clear to auscultation bilaterally AUSCULTATION: clear to auscultation bilaterally Cardio: COMMON NORMALS: no JVD, regular rate, regular rhythm, No clicks present (Cardio), No murmurs present (Cardio) and No rub (Cardio) RATE: r egular rate RHYTHM: regular rhythm GI: COMMON NORMALS: Normal to inspection, nondistended, normoactive bowel sounds present, Soft to palpation and non-tender INSPECTION: Yes abdominal distension and Yes central obesity AUSCULTATION: Yes normoactive bowel sounds PALPATION: Yes Soft to palpation RECTAL EXAM: Yes deferred Extremity: COMMON NORMALS: normal to inspection, full ROM and capillary refill normal Neuro: COMMON NORMALS: patient oriented x3, CN's II-XII intact bilaterally, moves all extremities, no focal motor deficits and no sensory deficits noted SENSORIUM/ORIENTATION: Yes oriented to person, Yes oriented to place and Yes oriented to time MOTOR EXAM: 5/5 motor strength present throughout, Pronator motor function not present and no tremor noted Psych: COMMON NORMALS: mental status grossly normal and Normal thought process present THOUGHT PROCESS: Normal thought process present Skin: COMMON NORMALS: no rashes or lesions noted GENERAL SKIN EXAM: no rashes or lesions noted Course 2 Vital Signs: Vital signs: Vital Signs Temperature 97.5 F L 01/14/24 09:39 Pulse Rate 65 01/14/24 09:57 Respiratory Rate 18 01/14/24 09:39 Blood Pressure 160/81 01/14/24 12:25 Pulse Oximetry 94 01/14/24 12:25 Oxygen Delivery Me thod Room Air 01/14/24 09:39 MDM - Weakness Medical Decision Making Patient presented with acute onset of weakness and blurred vision at 0600 this morning. Now resolved, patient stating he just has some residual bilateral lower extremity weakness. No pertinent medical history in terms of heart attacks or strokes. His blood work was all unremarkable, which included normal CBC, CMP, baseline and 2-hour troponin, and urinalysis. Glucose was elevated, has history of diabetes. He is started on fluids for potential dehydration purposes, as this is patient's primary complaint upon further investigation. Chest x-ray demonstrated no acute findings, and a CT of the head did not demonstrate any acute findings. Orthostatics were nondiagnostic. Due to patient's negative workup I will have him continue workup on an outpatient basis, specifically further cardiac evaluation with echocardiogram and stress test. Both of his EKGs were reviewed with Dr. Valladares, and both revealed normal sinus rhythm with no acute ST segment changes. I informed patient of his normal findings, of which she is now stating he does not have any more weakness and he is ready to go home. He is to continue taking his medications as prescribed and prompt follow-up as discussed. Dr. Valladares made aware of this patient's case and current findings and agrees with disposition at this time. Lab Data 01/14/24 10:15 01/14/24 10:15 Radiology Impressions Chest X-Ray 01/14/24 09:58 Impression: Atherosclerosis Head CT 01/14/24 10:44 IMPRESSION: No acute pathology or significant interval change. Laboratory Results WBC 7.65 10^3/uL (3.29-11.43) 01/14/24 10:15 RBC 4.59 10^6/uL (3.85-5.65) 01/14/24 10:15 Hgb 13.80 g/dL (11.27-16.99) 01/14/24 10:15 Hct 40.7 % (37-53) 01/14/24 10:15 MCV 88.7 fl (82-101) 01/14/24 10:15 MCH 30.1 pg (27-33) 01/14/24 10:15 MCHC 33.9 g/dL (30-55) 01/14/24 10:15 RDW 13.9 % (12.1-15.1) 01/14/24 10:15 Plt Count 188 10^3/cmm (157-399) 01/14/24 10:15 MPV 10.5 fL (7.4-10.4) H 01/14/24 10:15 Neut % (Auto) 79.1 % 01/14/24 10:15 Lymph % (Auto) 13.5 % 01/14/24 10:15 [place] % (Auto) 4.8 % 01/14/24 10:15 Eos % (Auto) 1.0 % 01/14/24 10:15 Baso % (Auto) 0.8 % 01/14/24 10:15 Neut # (Auto) 6.05 10^3/uL (1.8-7.7) 01/14/24 10:15 Lymph # (Auto) 1.0 10^3/uL (0.8-4.8) 01/14/24 10:15 [place] # (Auto) 0.4 10^3/uL (0.2-0.9) 01/14/24 10:15 Eos # (Auto) 0.1 10^3/uL (0.0-0.8) 01/14/24 10:15 Baso # (Auto) 0.1 10^3/uL (0.0-0.1) 01/14/24 10:15 Nucleated RBC % (auto) 0 % 01/14/24 10:15 Nucleated RBCs # 0.0 /100WBC 01/14/24 10:15 ESR 1 mm/hr (0-10) 01/14/24 10:15 Sodium 138 mmol/L (136-145) 01/14/24 10:15 Potassium 3.6 mmol/L (3.5-5.1) 01/14/24 10:15 Chloride 101 mmol/L (98-107) 01/14/24 10:15 Carbon Dioxide 23 mmol/L (22-29) 01/14/24 10:15 Anion Gap 17.6 (5-19) 01/14/24 10:15 BUN 11 mg/dL (8-23) 01/14/24 10:15 Creatinine 0.8 mg/dL (0.7-1.2) 01/14/24 10:15 GFR Calculation Not Reportable 01/14/24 10:15 Glucose 242 mg/dL (65-115) H 01/14/24 10:15 Calculated Osmolality 293 mOsm/kg (285-295) 01/14/24 10:15 Calcium 8.9 mg/dL (8.5-10.5) 01/14/24 10:15 Total Bilirubin 0.8 mg/dL (0.15-1.2) 01/14/24 10:15 AST 21 U/L (0-40) 01/14/24 10:15 ALT 33 U/L (0-41) 01/14/24 10:15 Alkaline Phosphatase 50 U/L (40-130) 01/14/24 10:15 Troponin T Baseline 12 ng/L (0-15) 01/14/24 10:15 Troponin T 120 Minute 12.61 ng/L (0-15) 01/14/24 11:55 Delta Troponin T 0.61 ABS# (0-10) 01/14/24 11:55 Total Protein 6.1 g/dL (6.6-8.7) L 01/14/24 10:15 Albumin 4.2 g/dL (3.5-5.2) 01/14/24 10:15 Globulin 1.9 g/dL (1.3-4.6) 01/14/24 10:15 Urine Color Yellow (Yellow) 01/14/24 10:15 Urine Appearance Clear (CLEAR) 01/14/24 10:15 Urine pH 8 (5-7) H 01/14/24 10:15 Ur Specific [place] 1.010 (1.005-1.030) 01/14/24 10:15 Urine Protein Neg (Negative) 01/14/24 10:15 Urine Glucose (UA) 2+ (Normal) H 01/14/24 10:15 Urine Ketones Negative (Negative) 01/14/24 10:15 Urine Blood Neg (Negative) 01/14/24 10:15 Urine Nitrate Negative (Negative) 01/14/24 10:15 Urine Bilirubin Neg (Negative) 01/14/24 10:15 Urine Urobilinogen Neg mg/dL (Negative) 01/14/24 10:15 Ur Leukocyte Esterase Negative (Negative) 01/14/24 10:15 All radiology interpretation(s) finalized by discharge EKG Data EKG 1: I personally reviewed and interpreted this EKG as follows: EKG interpretation date: 01/14/24 EKG interpretation time: 10:09 Prior EKG tracings: available for review Interpretation: EKG reviewed by me. Normal sinus rhythm. Rate 61. No significant change from prior on 02/04/22. No STEMI. EKG reviewed with Dr. Valladares. Discharge Plan Discharge Patient Disposition: Home Clinical Impression: Dizziness Condition: Stable Prescriptions: No Action nitroglycerin 0.4 mg tablet, sublingual 4 mg sublingual PRN PRN (Reason: Chest Pain) multivitamin [Multiple Vitamins] Tablet 1 tab PO DAILY latanoprost 0.005 % drops 1 drp ophthalmic (eye) BEDTIME metformin 1,000 mg tablet 1,000 mg PO BID allopurinol 300 mg tablet 300 mg PO DAILY benazepril 40 mg tablet 40 mg PO DAILY chlorthalidone 25 mg Tablet 25 mg PO DAILY Qty: 30 0RF pantoprazole 40 mg Tablet,Delayed Release (Dr/Ec) 40 mg PO DAILY Qty: 30 0RF atorvastatin 80 mg tablet 80 mg PO QPM carvedilol 12.5 mg tablet 12.5 mg PO BID Aspir-81 81 mg Tablet,Delayed Release (Dr/Ec) 81 mg PO DAILY amlodipine 10 mg tablet 10 mg PO DAILY Discharge Orders: Discharge ED (Routine); Ordered 01/14/24 Ordered By: Brayden Doll Discharge Diet: Usual diet Discharge Activity: Increase activity as tolerated Patient Instructions: Dizziness (ED) Activity Restrictions/Additional Instructions: Plenty of fluids. Please follow up with primary care provider as instructed for further outpatient management. Return with any new concerning symptoms. Continue home medications. Coding Level of Care Code ED Vaccine Manager for [facility] Fwd Documented by User: Osvaldo Valladares DO 01/14/24 18:02 HPI - Weakness 2 General: Chief complaint: Weakness Stated complaint: dizziness, blurred vision Time Seen by Provider: 01/14/24 09:48 PFSH ED 2 PFSH: Medical History (Updated 01/14/24 @ 12:14 by RAYMUNDO Zapien) Hypertension Diverticulosis Umbilical hernia, incarcerated Non-insulin dependent type 2 diabetes mellitus Hyperlipidemia Hypertension Surgical History History of umbilical hernia repair S/P tonsillectomy Status post colonoscopy (~2013) History of appendectomy Family History Grandmother Hypertension Diabetes Denies family history of CAD (coronary artery disease) Social History Smoking and tobacco/nicotine status: never used tobacco/nicotine Alcohol intake: never Substance/Drug Use: never Course 2 Vital Signs: Vital signs: Vital Signs Temperature 97.5 F L 01/14/24 09:39 Pulse Rate 65 01/14/24 09:57 Respiratory Rate 18 01/14/24 09:39 Blood Pressure 160/81 01/14/24 12:25 Pulse Oximetry 94 01/14/24 12:25 Oxygen Delivery Me thod Room Air 01/14/24 09:39 MDM - Weakness Medical Decision Making Patient presented with acute onset of weakness and blurred vision at 0600 this morning. Now resolved, patient stating he just has some residual bilateral lower extremity weakness. No pertinent medical history in terms of heart attacks or strokes. His blood work was all unremarkable, which included normal CBC, CMP, baseline and 2-hour troponin, and urinalysis. Glucose was elevated, has history of diabetes. He is started on fluids for potential dehydration purposes, as this is patient's primary complaint upon further investigation. Chest x-ray demonstrated no acute findings, and a CT of the head did not demonstrate any acute findings. Orthostatics were nondiagnostic. Due to patient's negative workup I will have him continue workup on an outpatient basis, specifically further cardiac evaluation with echocardiogram and stress test. Both of his EKGs were reviewed with Dr. Valladares, and both revealed normal sinus rhythm with no acute ST segment changes. I informed patient of his normal findings, of which she is now stating he does not have any more weakness and he is ready to go home. He is to continue taking his medications as prescribed and prompt follow-up as discussed. Dr. Valladares made aware of this patient's case and current findings and agrees with disposition at this time. Chart reviewed and patient discussed with midlevel. Agree with assessment and plan. Lab Data 01/14/24 10:15 01/14/24 10:15 Radiology Impressions Chest X-Ray 01/14/24 09:58 Impression: Atherosclerosis Head CT 01/14/24 10:44 IMPRESSION: No acute pathology or significant interval change. Laboratory Results WBC 7.65 10^3/uL (3.29-11.43) 01/14/24 10:15 RBC 4.59 10^6/uL (3.85-5.65) 01/14/24 10:15 Hgb 13.80 g/dL (11.27-16.99) 01/14/24 10:15 Hct 40.7 % (37-53) 01/14/24 10:15 MCV 88.7 fl (82-101) 01/14/24 10:15 MCH 30.1 pg (27-33) 01/14/24 10:15 MCHC 33.9 g/dL (30-55) 01/14/24 10:15 RDW 13.9 % (12.1-15.1) 01/14/24 10:15 Plt Count 188 10^3/cmm (157-399) 01/14/24 10:15 MPV 10.5 fL (7.4-10.4) H 01/14/24 10:15 Neut % (Auto) 79.1 % 01/14/24 10:15 Lymph % (Auto) 13.5 % 01/14/24 10:15 [place] % (Auto) 4.8 % 01/14/24 10:15 Eos % (Auto) 1.0 % 01/14/24 10:15 Baso % (Auto) 0.8 % 01/14/24 10:15 Neut # (Auto) 6.05 10^3/uL (1.8-7.7) 01/14/24 10:15 Lymph # (Auto) 1.0 10^3/uL (0.8-4.8) 01/14/24 10:15 [place] # (Auto) 0.4 10^3/uL (0.2-0.9) 01/14/24 10:15 Eos # (Auto) 0.1 10^3/uL (0.0-0.8) 01/14/24 10:15 Baso # (Auto) 0.1 10^3/uL (0.0-0.1) 01/14/24 10:15 Nucleated RBC % (auto) 0 % 01/14/24 10:15 Nucleated RBCs # 0.0 /100WBC 01/14/24 10:15 ESR 1 mm/hr (0-10) 01/14/24 10:15 Sodium 138 mmol/L (136-145) 01/14/24 10:15 Potassium 3.6 mmol/L (3.5-5.1) 01/14/24 10:15 Chloride 101 mmol/L (98-107) 01/14/24 10:15 Carbon Dioxide 23 mmol/L (22-29) 01/14/24 10:15 Anion Gap 17.6 (5-19) 01/14/24 10:15 BUN 11 mg/dL (8-23) 01/14/24 10:15 Creatinine 0.8 mg/dL (0.7-1.2) 01/14/24 10:15 GFR Calculation Not Reportable 01/14/24 10:15 Glucose 242 mg/dL (65-115) H 01/14/24 10:15 Calculated Osmolality 293 mOsm/kg (285-295) 01/14/24 10:15 Calcium 8.9 mg/dL (8.5-10.5) 01/14/24 10:15 Total Bilirubin 0.8 mg/dL (0.15-1.2) 01/14/24 10:15 AST 21 U/L (0-40) 01/14/24 10:15 ALT 33 U/L (0-41) 01/14/24 10:15 Alkaline Phosphatase 50 U/L (40-130) 01/14/24 10:15 Troponin T Baseline 12 ng/L (0-15) 01/14/24 10:15 Troponin T 120 Minute 12.61 ng/L (0-15) 01/14/24 11:55 Delta Troponin T 0.61 ABS# (0-10) 01/14/24 11:55 Total Protein 6.1 g/dL (6.6-8.7) L 01/14/24 10:15 Albumin 4.2 g/dL (3.5-5.2) 01/14/24 10:15 Globulin 1.9 g/dL (1.3-4.6) 01/14/24 10:15 Urine Color Yellow (Yellow) 01/14/24 10:15 Urine Appearance Clear (CLEAR) 01/14/24 10:15 Urine pH 8 (5-7) H 01/14/24 10:15 Ur Specific [place] 1.010 (1.005-1.030) 01/14/24 10:15 Urine Protein Neg (Negative) 01/14/24 10:15 Urine Glucose (UA) 2+ (Normal) H 01/14/24 10:15 Urine Ketones Negative (Negative) 01/14/24 10:15 Urine Blood Neg (Negative) 01/14/24 10:15 Urine Nitrate Negative (Negative) 01/14/24 10:15 Urine Bilirubin Neg (Negative) 01/14/24 10:15 Urine Urobilinogen Neg mg/dL (Negative) 01/14/24 10:15 Ur Leukocyte Esterase Negative (Negative) 01/14/24 10:15 Discharge Plan Discharge Patient Disposition: Home Clinical Impression: Dizziness Condition: Stable Prescriptions: No Action nitroglycerin 0.4 mg tablet, sublingual 4 mg sublingual PRN PRN (Reason: Chest Pain) multivitamin [Multiple Vitamins] Tablet 1 tab PO DAILY latanoprost 0.005 % drops 1 drp ophthalmic (eye) BEDTIME metformin 1,000 mg tablet 1,000 mg PO BID allopurinol 300 mg tablet 300 mg PO DAILY benazepril 40 mg tablet 40 mg PO DAILY chlorthalidone 25 mg Tablet 25 mg PO DAILY Qty: 30 0RF pantoprazole 40 mg Tablet,Delayed Release (Dr/Ec) 40 mg PO DAILY Qty: 30 0RF atorvastatin 80 mg tablet 80 mg PO QPM carvedilol 12.5 mg tablet 12.5 mg PO BID Aspir-81 81 mg Tablet,Delayed Release (Dr/Ec) 81 mg PO DAILY amlodipine 10 mg tablet 10 mg PO DAILY Discharge Orders: Discharge ED (Routine); Ordered 01/14/24 Ordered By: Brayden Doll Discharge Diet: Usual diet Discharge Activity: Increase activity as tolerated Patient Instructions: Dizziness (ED) Activity Restrictions/Additional Instructions: Plenty of fluids. Please follow up with primary care provider as instructed for further outpatient management. Return with any new concerning symptoms. Continue home medications. Coding Level of Care Code ED Vaccine Manager for Antonio Dickinson
[2024-01-14 10:23] LABS: Add Urine Microscopic? NO; Charge for UA Resulting for Rev
[2024-01-14 10:24] LABS: Basophils # 0.1 10^3/uL (0.0-0.1); Basophils % 0.8 %; Eosinophils # 0.1 10^3/uL (0.0-0.8); Hematocrit 40.7 % (37-53); Lymphocytes % 13.5 %; Mean Corpuscular HGB Conc 33.9 g/dL (30-55); Mean Corpuscular Hemoglobin 30.1 pg (27-33); Mean Corpuscular Volume 88.7 fl (82-101); Mean Platelet Volume 10.5 fL (7.4-10.4); Monocytes # 0.4 10^3/uL (0.2-0.9); Monocytes % 4.8 %; Neutrophils # 6.05 10^3/uL (1.8-7.7); Neutrophils % 79.1 %; Nucleated Red Blood Cells % 0 %; Platelet Count 188 10^3/cmm (157-399); Red Blood Count 4.59 10^6/uL (3.85-5.65); Red Cell Distribution Width 13.9 % (12.1-15.1); White Blood Count 7.65 10^3/uL (3.29-11.43)
[2024-01-14] MEDS: sodium chloride 0.9% 1,000 ML 999 ML IV (10:28)
[2024-01-14 10:29] LABS: Bilirubin Urine Neg (Negative); Blood Urine Neg (Negative); Glucose Urine UA 2+ (Normal); Ketones Urine Negative (Negative); Leukocyte Esterase Urine Negative (Negative); Nitrate Urine Negative (Negative); Protein Urine Neg (Negative); Urine Appearance Clear (CLEAR); Urine Color Yellow (Yellow); Urobilinogen Urine Neg (Negative); pH Urine 8 (5-7)
[2024-01-14 10:42] LABS: Alanine Aminotransferase 33 U/L (0-41); Albumin Level 4.2 g/dL (3.5-5.2); Alkaline Phosphatase 50 U/L (40-130); Anion Gap 17.6 (5-19); Aspartate Amino Transferase 21 U/L (0-40); Blood Urea Nitrogen 11 mg/dL (8-23); Calcium 8.9 mg/dL (8.5-10.5); Carbon Dioxide 23 mmol/L (22-29); Chloride 101 mmol/L (98-107); Creatinine Clr Calc Pharmacy 94.6319; Globulin 1.9 g/dL (1.3-4.6); Glucose 242 mg/dL (65-115); Osmolality Calculated 293 mOsm/kg (285-295); Potassium 3.6 mmol/L (3.5-5.1); Sodium 138 mmol/L (136-145); Total Bilirubin 0.8 mg/dL (0.15-1.2); Total Protein 6.1 g/dL (6.6-8.7)
[2024-01-14 10:44] LABS: Troponin(5th) Baseline 12 ng/L (0-15)
--- NOTE | 2024-01-14 10:44 | CTR_ITS ---
PROCEDURE INFORMATION: Exam: CT Head Without Contrast Exam date and time: 01/14/2024 11:16 AM Age: 73 years old Clinical indication: Visual disturbance; Additional info: Dizziness/visual changes TECHNIQUE: Imaging protocol: Computed tomography of the head without contrast. Radiation optimization: All CT scans at this facility use at least one of these dose optimization techniques: automated exposure control; mA and/or kV adjustment per patient size (includes targeted exams where dose is matched to clinical indication); or iterative reconstruction. COMPARISON: CT head wo con* [id number] 02/03/2022 8:31 PM RADIATION DOSE METRICS: Total DLP (mGy-cm): 1100.88 FINDINGS: Brain: Mild areas of low-attenuation in the white matter most likely representing small vessel ischemic change. Cerebral ventricles: Ventricular size and configuration within normal limits for age. Paranasal sinuses: No significant pathology. Mastoid air cells: Mastoids are within normal limits. Orbital cavities: Orbits are within normal limits. Bones: Unremarkable. No acute fracture. Soft tissues: Again noted are multifocal radiodensities at the skin surface of the frontal scalp; clinical correlation recommended. CT/CT head wo con* [id number] IMPRESSION: No acute pathology or significant interval change.
[2024-01-14 10:49] LABS: Erythrocyte Sedimentation Rate 1 mm/hr (0-10)
--- NOTE | 2024-01-14 12:01 | ECG_ITS ---
[facility] Test Date: 2024-01-14 Pat Name: Toan Bejarano Department: Room: Gender: Male [employer]: : [id number] Requested By: Brayden Wellington Order Number: [id number] Rakan MD: Jerson Watters M.D. Measurements Intervals Thompson Rate: 66 P: 24 ME: 175 QRS: 33 QRSD: 110 T: 14 QT: 405 QTc: 424 Interpretive Statements SINUS RHYTHM Compared to ECG 01/14/2024 10:08:37 T-wave abnormality no longer present Electronically Signed On 01-14-2024 15:34:56 CDT by Jerson Watters M.D. [email or web address]
[2024-01-14 12:21] LABS: Troponin 5 2HR 12.61 ng/L (0-15); Troponin 5 2HR Delta 0.61 ABS# (0-10)
[2024-01-14 12:25] VITALS: BP 160/81; O2SAT 94
== END 2024-01-14 12:26 | disposition home or self-care (01) ==
PROVIDERS: Emergency Provider Physician Assistant
DX: R42 Dizziness and giddiness (principal); Z79.82 Long term (current) use of aspirin; Z79.84 Long term (current) use of oral hypoglycemic drugs; I10 Essential (primary) hypertension; E11.9 Type 2 diabetes mellitus without complications; E78.5 Hyperlipidemia, unspecified
CPT/HCPCS: 36415; 70450; 71045; 80053; 81003; 84484; 85025; 85651; 93005; 99285; J7030